=== PATIENT | male | born 1990 | race Caucasian/White ===

== ENCOUNTER 2020-06-28 17:46 | Emergency (ER) | payer SELFPAY ==
[2020-06-28 17:53] VITALS: BP 165/80; PULSE 98; RESP 18; TEMP 36.7; O2SAT 96; BMI 34.8
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
[2020-06-28 19:44] VITALS: BP 172/108; PULSE 83; O2SAT 96
[2020-06-28] MEDS: HYDROcodone-acetaminophen 7.5-325 mg Tablet 1 TAB PO (19:51)
--- NOTE | 2020-06-30 09:16 | DCPLANNER ---
sterile processing manager had message to schedule a follow up appointment for patient with ortho. sterile processing manager called the ortho clinic, spoke with Marti, gave clinic patients information. sterile processing manager was told that patients information would be printed and reviewed. Clinic will call patient with appointment information.
--- NOTE | 2020-07-08 11:50 | DCPLANNER ---
germination testing manager called ortho clinic to confirm if a follow up appointment had been scheduled for patient. germination testing manager was told that clinic tried to call patient for follow up appointment, unable to reach patient and unable to leave voicemail due to mailbox being full. germination testing manager called phone number - unable to speak with patient, and could not leave a voicemail due to mailbox being full.
== END 2020-06-28 19:52 | disposition home or self-care (01) ==
PROVIDERS: Emergency Provider Nurse Practitioner Family; PCP Nurse Practitioner Family
DX: M48.02 Spinal stenosis, cervical region (principal); M54.12 Radiculopathy, cervical region
CPT/HCPCS: 12345; 72125; 99281; 99283

== ENCOUNTER → 2021-07-11 14:11 | Outpatient (BNVA) | payer OTHER, SELFPAY | PROVIDERS: PCP Nurse Practitioner Family; Visit Provider Nurse Practitioner | DX: Z20.822 Contact with and (suspected) exposure to COVID-19 (principal) | CPT/HCPCS: 87635 ==

== ENCOUNTER 2021-08-05 19:02 | Emergency (ER) | payer OTHER, SELFPAY ==
[2021-08-05 19:07] VITALS: BP 171/78; PULSE 108; RESP 20; TEMP 36.8; O2SAT 97; BMI 29.2
--- NOTE | 2021-08-05 19:07 | XRR_ITS ---
PROCEDURE INFORMATION: Exam: XR Right Hand Exam date and time: 08/05/2021 7:07 PM Age: 30 years old Clinical indication: Injury or trauma; Other: Punched a wall; Blunt trauma (contusions or hematomas); Hand; Right TECHNIQUE: Imaging protocol: XR Right hand. Views: 3 or more views. COMPARISON: No relevant prior studies available. FINDINGS: Bones/joints: 5th metacarpal proximal metadiaphyseal mildly displaced and angled fracture. Soft tissues: Normal. XR/XR hand RT min 3V* [id number] IMPRESSION: 5th metacarpal proximal metadiaphyseal mildly displaced and angled fracture.
--- NOTE | 2021-08-05 19:15 | ED_ITS ---
HPI - Extremity Problem General: Chief complaint: Extremity Injury, Upper Stated complaint: R hand injury Time Seen by Provider: 08/05/21 19:15 Course Vital Signs: Vital signs: Vital Signs Temperature 98.2 F 08/05/21 19:07 Pulse Rate 108 H 08/05/21 19:07 Respiratory Rate 20 H 08/05/21 19:07 Blood Pressure 171/78 08/05/21 19:07 Pulse Oximetry 97 08/05/21 19:07 Discharge Plan Discharge Condition: Stable Prescriptions: No Action cyclobenzaprine 10 mg tablet 10 mg PO TID PRN (Reason: MUSCLE SPASMS) 0RF cetirizine 10 mg tablet 10 mg PO DAILY@1900 0RF ibuprofen 800 mg tablet 800 mg PO Q6H PRN (Reason: Pain) 0RF fluticasone propionate 50 mcg/actuation spray,suspension 50 mcg INTRANASAL DAILY@1900 0RF diclofenac sodium 75 mg tablet,delayed release (DR/EC) 75 mg PO Q12H Qty: 20 0RF Rx Instructions: do not use with ibuprofen or naproxen tizanidine 4 mg tablet 4 mg PO Q8H PRN (Reason: muscle spasticity) Qty: 14 0RF Coding Level of Care Code ED Steam Table Worker for Linda Amador
[2021-08-05] MEDS: HYDROcodone-acetaminophen 5-325 mg Tablet 1 TAB PO (19:20)
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
--- NOTE | 2021-08-05 19:57 | XRR_ITS ---
PROCEDURE INFORMATION: Exam: XR Right Hand Exam date and time: 08/05/2021 7:57 PM Age: 30 years old Clinical indication: Pain; Hand; Right; Additional info: Post reduction TECHNIQUE: Imaging protocol: XR Right hand. Views: 1 or 2 views. COMPARISON: CR (UP EX, ) 08/05/2021 7:25 PM FINDINGS: Bones/joints: Fifth proximal metadiaphyseal mildly displaced and angulated fracture, somewhat similar to prior exam. Soft tissues: Normal. XR/XR hand RT 2V [id number] IMPRESSION: Fifth proximal metadiaphyseal mildly displaced and angulated fracture, somewhat similar to prior exam.
--- NOTE | 2021-08-06 18:51 | DCPLANNER ---
Addendum entered by Emani Frazier 08/14/21 12:41: Patient had a follow up appointment scheduled for 08.10.[address] Rg at ortho - patient did attend appointment. Original Note: sql manager had message to schedule a follow up appointment for patient. sql manager emailed patients information to both Yadi, and Ailyn at the ortho clinic. Patients information will be printed and reviewed. Clinic will call patient with appointment information.
== END 2021-08-05 20:05 | disposition home or self-care (01) ==
PROVIDERS: Emergency Provider Nurse Practitioner Family
DX: S62.326A Displaced fracture of shaft of fifth metacarpal bone, right hand, initial encounter for closed fracture (principal); W22.09XA Striking against other stationary object, initial encounter
CPT/HCPCS: 26605; 29260; 73120; 73130; 99283

== ENCOUNTER → 2021-08-10 15:13 | Outpatient (BNVA) | payer OTHER, SELFPAY | PROVIDERS: Visit Provider Orthopaedic Surgery | DX: S62.326A Displaced fracture of shaft of fifth metacarpal bone, right hand, initial encounter for closed fracture (principal); W22.09XA Striking against other stationary object, initial encounter | CPT/HCPCS: 73130 ==

== ENCOUNTER 2021-08-10 16:14 | Outpatient (CLI) | payer OTHER, SELFPAY | END 2021-08-10 16:15 | disposition home or self-care (01) | LOC: SPT 16:14 | PROVIDERS: Visit Provider Orthopaedic Surgery | DX: Z46.89 Encounter for fitting and adjustment of other specified devices (principal); S62.396D Other fracture of fifth metacarpal bone, right hand, subsequent encounter for fracture with routine healing; X58.XXXD Exposure to other specified factors, subsequent encounter | CPT/HCPCS: 97760; L3984 ==

== ENCOUNTER → 2021-09-02 13:45 | Outpatient (BNVA) | payer OTHER, SELFPAY | PROVIDERS: Visit Provider Orthopaedic Surgery | DX: Z47.89 Encounter for other orthopedic aftercare; S62.326D Displaced fracture of shaft of fifth metacarpal bone, right hand, subsequent encounter for fracture with routine healing; X58.XXXD Exposure to other specified factors, subsequent encounter | CPT/HCPCS: 73130 ==

== ENCOUNTER → 2021-09-30 13:43 | Outpatient (BNVA) | payer OTHER, SELFPAY | PROVIDERS: Visit Provider Orthopaedic Surgery | DX: S62.326A Displaced fracture of shaft of fifth metacarpal bone, right hand, initial encounter for closed fracture (principal); X58.XXXA Exposure to other specified factors, initial encounter | CPT/HCPCS: 73130 ==

== ENCOUNTER → 2021-11-10 10:08 | Outpatient (BNVA) | payer OTHER, SELFPAY | PROVIDERS: Visit Provider Orthopaedic Surgery | DX: S62.326A Displaced fracture of shaft of fifth metacarpal bone, right hand, initial encounter for closed fracture (principal); X58.XXXA Exposure to other specified factors, initial encounter | CPT/HCPCS: 73130 ==

== ENCOUNTER → 2021-12-16 15:17 | Outpatient (BNVA) | payer OTHER, SELFPAY | PROVIDERS: Visit Provider Orthopaedic Surgery | DX: S62.306D Unspecified fracture of fifth metacarpal bone, right hand, subsequent encounter for fracture with routine healing (principal); X58.XXXD Exposure to other specified factors, subsequent encounter | CPT/HCPCS: 73130 ==

== ENCOUNTER 2021-12-22 20:10 | Emergency (ER) | payer OTHER, SELFPAY ==
[2021-12-22 20:18] VITALS: BP 145/83; PULSE 118; RESP 18; TEMP 38; O2SAT 95
--- NOTE | 2021-12-22 20:20 | XRR_ITS ---
PROCEDURE INFORMATION: Exam: XR Chest Exam date and time: 12/22/2021 8:25 PM Age: 31 years old Clinical indication: Fever TECHNIQUE: Imaging protocol: Radiologic exam of the chest. Views: 1 view. COMPARISON: CR Chest 1 [place] [id number] 01/12/2016 9:18 PM FINDINGS: Lungs: Unremarkable. No consolidation. Pleural spaces: Unremarkable. No pleural effusion. No pneumothorax. Heart/Mediastinum: Unremarkable. No cardiomegaly. Bones/joints: Unremarkable. XR/XR chest 1V portable [id number] IMPRESSION: No acute findings.
--- NOTE | 2021-12-22 20:34 | W.ED.GENADLT ---
HPI - General Adult General: Chief complaint: Fever Stated complaint: dizzy, fever, Time Seen by Provider: 12/22/21 20:18 History of Present Illness: Patient is a 31-year-old male who comes to the ED with fever, headache, body aches and fatigue. Symptoms started today. 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 He says he felt like he was not sweating much today while working and thinks he was not drinking enough water over the past couple days as well. He also started developing a fever tonight along with body aches. Denies any known sick contacts or any known contact with positive COVID-19 patient. Endorses nasal congestion/drainage and dry cough. He had a sore throat this morning, but it has since resolved. Denies any chest pain, nausea/vomiting, abdominal pain, bladder or bowel symptoms. Associated symptoms: Reports headache(s); Deny chest pain, dyspnea, nausea, rash, palpitations or vomiting Review of Systems Const: Reports: fever(s), body aches and fatigue; Denies: chills Eyes: Denies: change in vision or eye discomfort ENMT: Reports: throat pain, nasal discharge and nasal congestion; Denies: odynophagia Card: Denies: chest pain, palpitations, edema, swelling of feet/ankles, dyspnea on exertion or orthopnea Resp: Reports: non-productive cough; Denies: dyspnea or productive cough GI: Denies: abdominal pain, nausea, vomiting, diarrhea, constipation or hematochezia : Denies: flank pain, difficulty urinating, dysuria or hematuria Musc: Denies: neck pain, back pain or extremity swelling Skin/Breast: Denies: rash or new lesions Neuro: Reports: headache(s) and dizziness (Mild dizziness that has improved before coming to ED); Denies: numbness in extremities or weakness in extremities PFSH ED PFSH: Medical History No pertinent family history Surgical History No pertinent past surgical history Social History Smoking and tobacco status: never smoked Physical Exam Const: COMMON NORMALS: patient oriented x3 and alert GENERAL APPEARANCE: cooperative HENMT: COMMON NORMALS: normocephalic HEAD & SCALP: normocephalic MOUTH: Normal oral and palatal mucosa present THROAT: posterior oropharynx normal and uvula midline Eye: COMMON NORMALS: Equal, round and reactive pupils present and conjunctivae normal CONJUNCTIVA: Yes conjunctivae normal PUPIL: Yes Equal, round and reactive pupils present Neck/C-Spine: COMMON NORMALS: supple GENERAL: Yes normal visual inspection Resp: COMMON NORMALS: normal respiratory effort, No retractions, No use of accessory muscles and clear to auscultation bilaterally AUSCULTATION: clear to auscultation bilaterally Cardio: COMMON NORMALS: regular rate, regular rhythm, S1 normal heart sound present, S2 normal heart sound present, No gallops present (Cardio), No clicks present (Cardio), No murmurs present (Cardio) and Peripheral pulses 2+ throughout RATE: regular rate RHYTHM: regular rhythm HEART SOUNDS: S1 normal heart sound present and S2 normal heart sound present PERIPHERAL PULSES: Peripheral pulses 2+ throughout GI: COMMON NORMALS: Normal to inspection, nondistended, normoactive bowel sounds present, Soft to palpation, non-tender and no masses PALPATION: Yes Soft to palpation : COMMON NORMALS: Yes no CVA tenderness BLADDER/KIDNEY EXAM: Yes no CVA tenderness Back/Pelvis: COMMON NORMALS: no CVA tenderness Extremity: COMMON NORMALS: normal to inspection Neuro: COMMON NORMALS: patient oriented x3 and moves all extremities SENSORIUM/ORIENTATION: Yes alert Skin: GENERAL SKIN EXAM: dry skin Course Vital Signs: Vital signs: Vital Signs Temperature 100.4 F H 12/22/21 20:18 Pulse Rate 106 H 12/22/21 22:12 Respiratory Rate 18 12/22/21 22:07 Blood Pressure 145/83 12/22/21 20:18 Pulse Oximetry 93 12/22/21 22:07 [facility] - General Adult Medical Decision Making Patient is a 31-year-old male who comes to the ED with fever, headache, body aches and fatigue. Symptoms started today. 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 Patient had a temperature of 100.4 and a pulse of 118, but the rest of vitals were unremarkable. Exam of patient was benign. Labs were unremarkable. Influenza negative, COVID test pending. Chest x-ray showed some scattered punctuate calcified granulomas throughout both lungs. Patient was given 1 L of IV fluids and ibuprofen here in the ED and he said his symptoms improved. Given patient's clinical presentation and history leading up to symptoms heat exhaustion more likely than viral syndrome or COVID-19. He was diagnosed with heat exhaustion and calcified granuloma of the lung. I told him about the chest x-ray findings and I have put in an order with case management to refer patient to ferryboat helper Dr. Escamilla for further follow-up on lung granulomas. Return to ED precautions given. Follow-up with PCP in the next week for reevaluation. Patient understood and agreed with plan. Lab Data I reviewed the patient's lab results. : 12/22/21 20:45 12/22/21 20:45 Radiology Impressions Chest X-Ray 12/22/21 20:20 IMPRESSION: No acute findings. ADDENDUM: 12/22/212058 Scattered punctate calcified granulomas are seen throughout both lung morfin. Laboratory Results WBC 6.7 10^3/uL (4.0-10.0) 12/22/21 20:45 RBC 5.13 10^6/uL (4.1-5.3) 12/22/21 20:45 Hgb 14.7 g/dL (11.7-16.6) 12/22/21 20:45 Hct 42.9 % (42.0-52.0) 12/22/21 20:45 MCV 83.6 fl (80-94) 12/22/21 20:45 MCH 28.7 pg (28.0-34.0) 12/22/21 20:45 MCHC 34.3 g/dL (30.0-36.0) 12/22/21 20:45 RDW 12.2 % (12.1-15.1) 12/22/21 20:45 Plt Count 177 10^3/cmm (130-400) 12/22/21 20:45 MPV 10.9 fL (7.4-10.4) H 12/22/21 20:45 Neut % (Auto) 80.5 % 12/22/21 20:45 Lymph % (Auto) 7.2 % 12/22/21 20:45 Arthur % (Auto) 10.7 % 12/22/21 20:45 Eos % (Auto) 0.9 % 12/22/21 20:45 Baso % (Auto) 0.2 % 12/22/21 20:45 Neut # (Auto) 5.37 10^3/uL (1.8-7.7) 12/22/21 20:45 Lymph # (Auto) 0.5 10^3/uL (0.8-4.8) L 12/22/21 20:45 Arthur # (Auto) 0.7 10^3/uL (0.2-0.9) 12/22/21 20:45 Eos # (Auto) 0.1 10^3/uL (0.0-0.8) 12/22/21 20:45 Baso # (Auto) 0.0 10^3/uL (0.0-0.1) 12/22/21 20:45 Nucleated RBC % (auto) 0 % 12/22/21 20:45 Nucleated RBCs # 0.0 /100WBC 12/22/21 20:45 Sodium 141 mmol/L (136-145) 12/22/21 20:45 Potassium 3.8 mmol/L (3.5-5.1) 12/22/21 20:45 Chloride 104 mmol/L (98-107) 12/22/21 20:45 Carbon Dioxide 26 mmol/L (22-29) 12/22/21 20:45 Anion Gap 14.8 (5-19) 12/22/21 20:45 BUN 12 mg/dL (6-20) 12/22/21 20:45 Creatinine 0.9 mg/dL (0.7-1.2) 12/22/21 20:45 GFR Calculation 99.1 mL/min (90-130) 12/22/21 20:45 Glucose 94 mg/dL (65-115) 12/22/21 20:45 Calculated Osmolality 292 mOsm/kg (285-295) 12/22/21 20:45 Calcium 10.0 mg/dL (8.5-10.5) 12/22/21 20:45 Total Bilirubin 0.3 mg/dL (0.15-1.2) 12/22/21 20:45 AST 27 U/L (0-40) 12/22/21 20:45 ALT 43 U/L (0-41) H 12/22/21 20:45 Alkaline Phosphatase 42 IU/L (40-130) 12/22/21 20:45 Total Protein 7.7 g/dL (6.6-8.7) 12/22/21 20:45 Albumin 4.9 g/dL (3.5-5.2) 12/22/21 20:45 Globulin 2.8 g/dL (1.3-4.6) 12/22/21 20:45 Influenza Type A Ag Negative (Negative) 12/22/21 20:45 Influenza Type B Ag Negative (Negative) 12/22/21 20:45 Group A Strep Rapid Negative (Negative) 12/22/21 20:45 Discharge Plan Discharge Patient Disposition: Home Clinical Impression: COVID-19 virus test result unknown, Calcified granuloma of lung Heat exhaustion Qualifiers: Encounter type: initial encounter Qualified Code(s): T67.5XXA - Heat exhaustion, unspecified, initial encounter Condition: Stable Prescriptions: No Action (DME) Camilla sherman See Rx Instructions .Route .MEDSUPPLY Qty: 1 0RF Rx Instructions: As directed hydrocodone-acetaminophen 5-325 mg tablet 1 tab PO Q8H PRN (Reason: pain) 7 Days Qty: 30 0RF cyclobenzaprine 10 mg tablet 10 mg PO TID PRN (Reason: MUSCLE SPASMS) 0RF cetirizine 10 mg tablet 10 mg PO DAILY@1900 0RF ibuprofen 800 mg tablet 800 mg PO Q6H PRN (Reason: Pain) 0RF fluticasone propionate 50 mcg/actuation spray,suspension 50 mcg INTRANASAL DAILY@1900 0RF diclofenac sodium 75 mg tablet,delayed release (DR/EC) 75 mg PO Q12H Qty: 20 0RF Rx Instructions: do not use with ibuprofen or naproxen tizanidine 4 mg tablet 4 mg PO Q8H PRN (Reason: muscle spasticity) Qty: 14 0RF Discharge Orders: Discharge ED (Routine); Ordered 12/22/21 Ordered By: Evan Caicedo Discharge Diet: Regular Discharge Activity: Increase activity as tolerated Patient Instructions: Heat Exhaustion (ED) Activity Restrictions/Additional Instructions: Follow-up with PCP in the next 5 to 7 days for reevaluation. Case management should be contacting you next several days to set up an appointment with the ferryboat helper for further evaluation of granulomas in lungs.continue taking all home medications as previously prescribed. Your COVID-19 test is pending and should be back within the next 48 hours. [facility] should call you if results is positive but if you have not heard from them after 48 hours call [facility] to find out results. Return to the ER or your medical provider if condition worsens. Please read and understand discharge instructions. [facility] you [facility]. Please realize this is an emergency room and that we are providing you with a medical screening exam and this may not be complete and all inclusive of all the testing and or work up that you may need to determine your ailment or severity of your illness. It is very important that you follow up as instructed or that you return to the Emergency Department should you have concerns or if your condition changes or worsens in any way. Stand Alone Forms: Work/School Release Coding Level of Care Code ED Puttying And Calking Supervisor for Linda Fwroly Exam Comprehensive
[2021-12-22] MEDS: ibuprofen 800 mg tablet PO (20:49)
[2021-12-22] MEDS: sodium chloride 0.9% 1,000 ML 999 ML IV (20:49)
[2021-12-22 20:54] LABS: Basophils % 0.2 %; Eosinophils # 0.1 10^3/uL (0.0-0.8); Eosinophils % 0.9 %; Hematocrit 42.9 % (42.0-52.0); Hemoglobin 14.7 g/dL (11.7-16.6); Lymphocytes # 0.5 10^3/uL (0.8-4.8); Lymphocytes % 7.2 %; Mean Corpuscular HGB Conc 34.3 g/dL (30.0-36.0); Mean Corpuscular Hemoglobin 28.7 pg (28.0-34.0); Mean Corpuscular Volume 83.6 fl (80-94); Mean Platelet Volume 10.9 fL (7.4-10.4); Monocytes # 0.7 10^3/uL (0.2-0.9); Monocytes % 10.7 %; Neutrophils # 5.37 10^3/uL (1.8-7.7); Neutrophils % 80.5 %; Nucleated Red Blood Cells % 0 %; Platelet Count 177 10^3/cmm (130-400); Red Blood Count 5.13 10^6/uL (4.1-5.3); Red Cell Distribution Width 12.2 % (12.1-15.1); White Blood Count 6.7 10^3/uL (4.0-10.0)
[2021-12-22 21:16] LABS: Rapid Strep A Test Negative (Negative)
[2021-12-22 21:20] LABS: Influenza A by IFA Negative (Negative); Influenza B by IFA Negative (Negative)
[2021-12-22 21:22] LABS: Alanine Aminotransferase 43 U/L (0-41); Albumin Level 4.9 g/dL (3.5-5.2); Alkaline Phosphatase 42 IU/L (40-130); Anion Gap 14.8 (5-19); Aspartate Amino Transferase 27 U/L (0-40); Blood Urea Nitrogen 12 mg/dL (6-20); Carbon Dioxide 26 mmol/L (22-29); Chloride 104 mmol/L (98-107); Creatinine Clr Calc Pharmacy 147.5331; Globulin 2.8 g/dL (1.3-4.6); Glomerular Filtration Rate 99.1 mL/min (90-130); Glucose 94 mg/dL (65-115); Osmolality Calculated 292 mOsm/kg (285-295); Potassium 3.8 mmol/L (3.5-5.1); Sodium 141 mmol/L (136-145); Total Bilirubin 0.3 mg/dL (0.15-1.2); Total Protein 7.7 g/dL (6.6-8.7)
[2021-12-22 22:07] VITALS: PULSE 105; RESP 18; O2SAT 93
[2021-12-22] MEDS: ipratropium-albuterol 3 mL Neb 6 ML INHALATION (22:07)
[2021-12-22 22:12] VITALS: PULSE 106
[2021-12-24 17:52] LABS: Quest SARS-CoV-2 RNA DETECTED (NOT DETECTED)
--- NOTE | 2021-12-25 08:10 | DCPLANNER ---
Addendum entered by Emani Frazier 01/05/22 09:59: Patient had a follow up appointment scheduled for 12.31.[address] Escamilla at Pulmonology - patient did attend appointment. Original Note: manager employee benefits had message to schedule a follow up appointment for patient with pulmonolgy. manager employee benefits sent patients information to the front office staff at [facility]. Patients information will be printed and reviewed. Clinic will call patient with appointment information.
== END 2021-12-22 22:30 | disposition home or self-care (01) ==
PROVIDERS: Emergency Provider Physician Assistant
DX: J84.10 Pulmonary fibrosis, unspecified (principal); T67.5XXA Heat exhaustion, unspecified, initial encounter; Z20.822 Contact with and (suspected) exposure to COVID-19; X30.XXXA Exposure to excessive natural heat, initial encounter
CPT/HCPCS: 71045; 80053; 85025; 87081; 87635; 87804; 87880; 94640; 99284; J7030

== ENCOUNTER 2022-01-26 19:55 | Emergency (ER) | payer OTHER, SELFPAY ==
[2022-01-26 20:01] VITALS: BP 144/88; PULSE 86; RESP 18; TEMP 36.6; O2SAT 97; BMI 32.8
--- NOTE | 2022-01-26 20:02 | XRR_ITS ---
PROCEDURE INFORMATION: Exam: XR Right Wrist Exam date and time: 01/26/2022 8:12 PM Age: 31 years old Clinical indication: Injury or trauma; Other: Back slapped a door; Blunt trauma (contusions or hematomas); Wrist; Right TECHNIQUE: Imaging protocol: Radiologic exam of the Right wrist. Views: 3 or more views. COMPARISON: CR (UP EXM, ) 01/26/2022 8:10 PM FINDINGS: Bones/joints: Osseous structures are intact. Negative for fracture. Joint spaces are preserved. Soft tissues: Normal. XR/XR wrist RT min 3V* [id number] IMPRESSION: No acute findings.
--- NOTE | 2022-01-26 20:02 | XRR_ITS ---
PROCEDURE INFORMATION: Exam: XR Right Hand Exam date and time: 01/26/2022 8:10 PM Age: 31 years old Clinical indication: Injury or trauma; Other: Back slapped a door; Blunt trauma (contusions or hematomas); Hand; Right TECHNIQUE: Imaging protocol: Radiologic exam of the Right hand. Views: 3 or more views. COMPARISON: CR (UP EX, ) 08/10/2021 3:21 PM FINDINGS: Bones/joints: Osseous structures are intact. No acute fracture. Old callused fracture noted at the base of the 5th metacarpal. Soft tissues: Normal. XR/XR hand RT min 3V* [id number] IMPRESSION: No acute findings.
--- NOTE | 2022-01-26 20:15 | W.ED.EXTPRO ---
HPI - Extremity Problem General: Chief complaint: Extremity Injury, Upper Stated complaint: R hand an wrist injusry Time Seen by Provider: 01/26/22 20:08 [facility] ED PFSH: Medical History (Updated 12/31/21 @ 15:53 by Suze Escamilla MD) Allergic rhinosinusitis Fracture of fifth metacarpal bone of right hand No pertinent family history Surgical History No pertinent past surgical history Social History Smoking and tobacco status: never smoked Course Vital Signs: Vital signs: Vital Signs Temperature 97.9 F 01/26/22 20:01 Pulse Rate 86 01/26/22 20:01 Respiratory Rate 18 01/26/22 20:01 Blood Pressure 144/88 01/26/22 20:01 Pulse Oximetry 97 01/26/22 20:01 Oxygen Delivery Me thod 01/26/22 20:01 Discharge Plan Discharge Condition: Stable Prescriptions: No Action (DME) Camilla sherman See Rx Instructions .Route .MEDSUPPLY Qty: 1 0RF Rx Instructions: As directed multivitamin Tablet 1 tab PO DAILY cyclobenzaprine 10 mg tablet 10 mg PO TID PRN (Reason: MUSCLE SPASMS) cetirizine 10 mg tablet 10 mg PO DAILY@1900 ibuprofen 800 mg tablet 800 mg PO Q6H PRN (Reason: Pain) fluticasone propionate 50 mcg/actuation spray,suspension 50 mcg INTRANASAL DAILY@1900 Referrals: Andry Burgos MD [Primary Care Provider] - Coding Level of Care Code ED 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
--- NOTE | 2022-01-26 20:17 | W.ED.UPPEXIN ---
HPI - Extremity Injury (Upper) General: Chief Complaint: Extremity Injury, Upper Stated Complaint: R hand an wrist injusry Time Seen by Provider: 01/26/22 20:08 Source: patient Mode of arrival: ambulatory Limitations: no limitations History of Present Illness: Patient is a 31-year-old male who presents to ED today with a complaint of right hand pain. Patient tells me earlier today he struck his right hand up against a wall. Patient states he more or less smacked the wall with the back of his hand and denies any actual punching mechanism. Patient does report he broke his right fifth metacarpal a few months ago and was recently cleared by orthopedics last month. He denies any numbness, tingling, loss of sensation. No abrasions or lacerations. He has no other complaints at this time. complaint: injury to: right and hand Onset (ago): hour(s) Other Extremity Injury: Right: hand Other injuries: none Place: home Severity: moderate Relieving factors: immobilization Exacerbating factors: movement of extremity Context: direct blow Associated symptoms: Reports no associated symptoms Review of Systems Musc: Reports: extremity pain (R hand); Denies: joint pain, joint swelling, joint redness or limited range of motion Neuro: Denies: numbness in extremities or sensory changes PFS ED PFSH: Medical History Allergic rhinosinusitis Fracture of fifth metacarpal bone of right hand No pertinent family history Surgical History No pertinent past surgical history Social History Smoking and tobacco status: never smoked Physical Exam Const: COMMON NORMALS: no acute distress, average body habitus, no limitations, alert and well nourished Extremity: COMMON NORMALS: full ROM and capillary refill normal GENERAL: Yes normal exam except as noted RIGHT UPPER EXTREMITY: Yes hand & digits OTHER: TTP dorsal R hand; mild bony deformity noted to midshaft R 5th metacarpal from previous known fracture; no other bony deformities noted; full ROM; NV intact Neuro: COMMON NORMALS: moves all extremities, no focal motor deficits and no sensory deficits noted SENSORIUM/ORIENTATION: Yes alert Skin: TRAUMA: no lacerations or abrasions Course Vital Signs: Vital signs: Vital Signs Temperature 97.9 F 01/26/22 20:01 Pulse Rate 86 01/26/22 20:01 Respiratory Rate 18 01/26/22 20:01 Blood Pressure 144/88 01/26/22 20:01 Pulse Oximetry 97 01/26/22 20:01 Oxygen Delivery Me thod 01/26/22 20:01 MDM - Extremity Injury (Upper) Medical Decision Making XRs hand/wrist negative. Healing fracture of mid shaft 5th metacarpal noted. No changes from today's films vs last films he had done at orthopedics last month. Recommend conservative treatment at home. Return to ED precautions. If he continues to have pain I would recommend he see his orthopedic provider. Discharge Plan Discharge Patient Disposition: Home Clinical Impression: Contusion of right hand Qualifiers: Encounter type: initial encounter Qualified Code(s): S60.221A - Contusion of right hand, initial encounter Condition: Stable Prescriptions: No Action (DME) Ulnar gutter See Rx Instructions .Route .MEDSUPPLY Qty: 1 0RF Rx Instructions: As directed multivitamin Tablet 1 tab PO DAILY cyclobenzaprine 10 mg tablet 10 mg PO TID PRN (Reason: MUSCLE SPASMS) cetirizine 10 mg tablet 10 mg PO DAILY@1900 ibuprofen 800 mg tablet 800 mg PO Q6H PRN (Reason: Pain) fluticasone propionate 50 mcg/actuation spray,suspension 50 mcg INTRANASAL DAILY@1900 Discharge Orders: Discharge ED (Routine); Ordered 01/26/22 Ordered By: Janice Sandoval Referrals: Andry Burgos MD [Primary Care Provider] - Coding Level of Care Code ED Radiotelephone Operator for Linda Amador
== END 2022-01-26 20:37 | disposition home or self-care (01) ==
PROVIDERS: Emergency Provider Physician Assistant; PCP Family Medicine
DX: S60.221A Contusion of right hand, initial encounter (principal); W22.09XA Striking against other stationary object, initial encounter
CPT/HCPCS: 73110; 73130; 99283

== ENCOUNTER 2022-03-11 20:20 | Emergency (ER) | payer OTHER, SELFPAY ==
[2022-03-11 20:32] VITALS: BP 145/87; PULSE 90; RESP 16; TEMP 36.9; O2SAT 100
--- NOTE | 2022-03-11 20:50 | PC.NURSE ---
Patient states his last td was here two years ago
[2022-03-11] MEDS: lidocaine 2% viscous 15 mL UDC TOPICAL (21:42)
--- NOTE | 2022-03-11 22:13 | W.ED.WOUNDLC ---
HPI - Wound/Laceration General: Chief Complaint: Wound/Laceration Stated Complaint: Busted Lip Time Seen by Provider: 03/11/22 20:34 History of Present Illness: Patient is in today for a busted lip. He reports that he was working in his garage and he pulled back and a bar came back and hit him in the lower lip. He reports that he has an open sore now. He reports that he is up-to-date on his tetanus vaccination within the past 1 year. Associated symptoms: Denies chills or fever(s) Review of Systems Const: Denies: fever(s) or chills ENMT: Reports: other (Open sore lower lip) ON LICENSE OF [facility] ED PFSH: Medical History Allergic rhinosinusitis Fracture of fifth metacarpal bone of right hand No pertinent family history Surgical History No pertinent past surgical history Social History Smoking and tobacco status: never smoked Physical Exam Const: COMMON NORMALS: no acute distress, patient oriented x3 and alert HENMT: MOUTH IMAGES: 1. Superficial laceration to the lower lip mucosa. Wound is slightly gaping jagged edge. Resp: COMMON NORMALS: normal respiratory effort and No use of accessory muscles Neuro: COMMON NORMALS: patient oriented x3 SENSORIUM/ORIENTATION: Yes alert Procedures Laceration Laceration 1: Site: lip (Lower lip mucosa) Size (cm): 0.5 Description: irregular Depth: simple, single layer Local Anesthetic: other anesthetic (Viscous lidocaine) Pre-repair: irrigated extensively Skin layer closed with: vicryl (5-o) Size (cm): 5-0 Number of sutures: 1 Technique: simple, interrupted Course Vital Signs: Vital signs: Vital Signs Temperature 98.4 F 03/11/22 20:32 Pulse Rate 90 03/11/22 20:32 Respiratory Rate 16 03/11/22 20:32 Blood Pressure 145/87 03/11/22 20:32 Pulse Oximetry 100 03/11/22 20:32 Oxygen Delivery Me thod 03/11/22 20:32 MDM - Wound/Laceration Medical Decision Making Patient is in today for a busted lip. He does have a slightly gaping small wound on his lower lip mucosa. Bleeding is mostly controlled. Viscous lidocaine applied wound is cleansed and explored no obvious foreign bodies appreciated. Patient states because the wound edges are a little bit and even he is afraid that that well really bother him as it is healing. He request suture repair. 5-0 Vicryl used times 1 suture to approximate the wound. Patient tolerated well bleeding is controlled. Advised patient of aftercare advised him that if the suture has not dissolved in 3 to 5 days I would like him to return to have the suture removed at that time. Follow-up with primary care provider. Return to the ER as needed for new or worsening symptoms. Discharge Plan Discharge Patient Disposition: Home Clinical Impression: Laceration of lip Condition: Stable Prescriptions: No Action (DME) Camilla sherman See Rx Instructions .Route .MEDSUPPLY Qty: 1 0RF Rx Instructions: As directed multivitamin Tablet 1 tab PO DAILY cyclobenzaprine 10 mg tablet 10 mg PO TID PRN (Reason: MUSCLE SPASMS) cetirizine 10 mg tablet 10 mg PO DAILY@1900 ibuprofen 800 mg tablet 800 mg PO Q6H PRN (Reason: Pain) fluticasone propionate 50 mcg/actuation spray,suspension 50 mcg INTRANASAL DAILY@1900 Discharge Orders: Discharge ED (Routine); Ordered 03/11/22 Ordered By: Jasmin Grider Referrals: Andry Burgos MD [Primary Care Provider] - Discharge Diet: Advance as tolerated and Usual diet Discharge Activity: Resume usual activity Patient Instructions: Care For Your Absorbable Stitches (ED) Activity Restrictions/Additional Instructions: Your sutures should dissolve on their own but if they are still remaining in 3 to 5 days you may return here or go to your primary care provider's office to have the suture removed. You may ice the area a few minutes at a time a couple times a day in order to help with swelling. Monitor closely for signs of infection. Follow-up with primary care provider as needed. Return to the ER for any new or worsening symptoms Coding Level of Care Code ED Machine Leather Trimmer for Linda Amador
== END 2022-03-11 22:19 | disposition home or self-care (01) ==
PROVIDERS: Emergency Provider Nurse Practitioner Family; PCP Family Medicine
DX: S01.511A Laceration without foreign body of lip, initial encounter (principal); W20.8XXA Other cause of strike by thrown, projected or falling object, initial encounter
CPT/HCPCS: 12011; 99282

== ENCOUNTER 2022-05-23 22:09 | Emergency (ER) | payer OTHER, SELFPAY ==
[2022-05-23 22:27] VITALS: BP 119/81; PULSE 79; RESP 16; TEMP 36.6; O2SAT 98; BMI 30.7
--- NOTE | 2022-05-23 23:01 | CTR_ITS ---
PROCEDURE INFORMATION: Exam: CT Head Without Contrast Exam date and time: 05/23/2022 11:08 PM Age: 31 years old Clinical indication: Injury or trauma; Other: Large object struck back of head; Concussion/head injury; Additional info: Headache after being hit by a large tire. TECHNIQUE: Imaging protocol: Computed tomography of the head without contrast. Radiation optimization: All CT scans at this facility use at least one of these dose optimization techniques: automated exposure control; mA and/or kV adjustment per patient size (includes targeted exams where dose is matched to clinical indication); or iterative reconstruction. COMPARISON: CT cervical spin wo con* [id number] 06/28/2020 6:46 PM RADIATION DOSE METRICS: Total DLP (mGy-cm): 1135.33 FINDINGS: Brain: No focal hemorrhage or midline shift is identified. Cerebral ventricles: No ventriculomegaly or evidence of acute hydrocephalus. Paranasal sinuses: The partially assessed sinuses are grossly clear. Mastoid air cells: Visualized mastoid air cells are well aerated. Bones/joints: No displaced skull fracture is noted. Soft tissues: Unremarkable. CT/CT head wo con* [id number] IMPRESSION: No acute intracranial abnormality.
--- NOTE | 2022-05-23 23:01 | CTR_ITS ---
PROCEDURE INFORMATION: Exam: CT Cervical Spine Without Contrast Exam date and time: 05/23/2022 11:08 PM Age: 31 years old Clinical indication: Neck pain; Additional info: Neck pain-whiplash type injury TECHNIQUE: Imaging protocol: Computed tomography of the cervical spine without contrast. Radiation optimization: All CT scans at this facility use at least one of these dose optimization techniques: automated exposure control; mA and/or kV adjustment per patient size (includes targeted exams where dose is matched to clinical indication); or iterative reconstruction. COMPARISON: CT cervical spin wo con* [id number] 06/28/2020 6:46 PM RADIATION DOSE METRICS: Total DLP (mGy-cm): 214.2 FINDINGS: Bones/joints: No acute fracture. Normal alignment. No significant disc protrusion. No severe spinal canal stenosis. Mild mid cervical lordotic reversal, which may be due to position or spasm. Lungs: Lung apices are normal. Soft tissues: Unremarkable. CT/CT cervical spin wo con* [id number] IMPRESSION: No acute findings.
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
[2022-05-23] MEDS: ibuprofen 800 mg tablet PO (23:07)
[2022-05-23 23:56] VITALS: BP 145/77; PULSE 72; RESP 18; O2SAT 97
== END 2022-05-23 23:55 | disposition home or self-care (01) ==
PROVIDERS: Emergency Provider Physician Assistant; PCP Family Medicine
DX: S13.4XXA Sprain of ligaments of cervical spine, initial encounter (principal); W20.8XXA Other cause of strike by thrown, projected or falling object, initial encounter
CPT/HCPCS: 70450; 72125; 99284

== ENCOUNTER 2022-05-28 18:02 | Emergency (ER) | payer OTHER, SELFPAY ==
[2022-05-28 18:15] VITALS: BP 140/86; PULSE 86; RESP 12; TEMP 36.9; O2SAT 97; BMI 30.7
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
[2022-05-28] MEDS: meclizine 25 mg tablet 50 MG PO (20:00)
[2022-05-28 20:18] VITALS: PULSE 85; RESP 17; O2SAT 95
--- NOTE | 2022-05-31 08:18 | DCPLANNER ---
Addendum entered by Emani Frazier 06/01/22 14:19: Patient had a follow up appointment scheduled with ENT - patient did attend appointment. Original Note: information technology account manager had message to schedule a follow up appointment for patient with ENT. information technology account manager sent patients information to the front office staff at ENT. Patients information will be printed and reviewed. Clinic will call patient with appointment information.
== END 2022-05-28 20:09 | disposition home or self-care (01) ==
PROVIDERS: Emergency Provider Emergency Medicine; PCP Family Medicine
DX: T16.2XXA Foreign body in left ear, initial encounter (principal); X58.XXXA Exposure to other specified factors, initial encounter
CPT/HCPCS: 69200; 99283; J8597

== ENCOUNTER 2022-10-23 15:36 | Emergency (ER) | payer OTHER, SELFPAY ==
[2022-10-23 15:40] VITALS: BP 137/80; PULSE 98; RESP 16; TEMP 36.6; O2SAT 96
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
== END 2022-10-23 16:52 | disposition home or self-care (01) ==
PROVIDERS: Emergency Provider Physician Assistant; PCP Family Medicine
DX: S39.012A Strain of muscle, fascia and tendon of lower back, initial encounter (principal); V89.2XXA Person injured in unspecified motor-vehicle accident, traffic, initial encounter
CPT/HCPCS: 72040; 72100; 99283

== ENCOUNTER 2022-12-17 13:08 | Emergency (ER) | payer OTHER, SELFPAY ==
[2022-12-17 13:29] VITALS: BP 128/75; PULSE 87; RESP 17; TEMP 36.7; O2SAT 97; BMI 28.8
[2022-12-17 15:24] VITALS: BP 139/74; PULSE 86; O2SAT 96
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
[2022-12-17] MEDS: dexamethasone 10 mg/mL INJ IM (15:42)
[2022-12-17] MEDS: ketorolac 60 mg/2 mL INJ IM (15:42)
[2022-12-17] MEDS: methocarbamol 750 mg Tablet PO (15:42)
[2022-12-17 16:02] VITALS: BP 139/72; PULSE 87; O2SAT 94
== END 2022-12-17 16:03 | disposition home or self-care (01) ==
PROVIDERS: Emergency Provider Physician Assistant; PCP Family Medicine
DX: S39.012A Strain of muscle, fascia and tendon of lower back, initial encounter (principal); X50.0XXA Overexertion from strenuous movement or load, initial encounter
CPT/HCPCS: 96372; 99284; J1100; J1885

== ENCOUNTER 2023-07-28 14:49 | Outpatient (CLI) | payer OTHER, SELFPAY ==
--- NOTE | 2023-07-28 15:15 | USCV_ITS ---
Fred López Age: 32 Gender: M : 1990 Exam Date: 07/28/2023 15:18 Ordering Phys: Andry Burgos MD Technologist: Jessi Chávez Exam Location: [facility] [place] Indication: palpitations BP: 125 / 64 HR: Rhythm: Sinus Technical Quality: Good MEASUREMENTS (Male / Female) Normal Values 2D ECHO LVOT Diameter 2.1 cm LV Ejection Fraction MOD 2C 32.3 % Aorta at Sinotubular Diameter 2.9 cm IVC Diameter 1.1 cm M-MODE LA Ao Ratio MM 1.1 AV Cusp Separation MM 2.0 cm DOPPLER AV Peak Velocity 122.0 cm/s LVOT Peak Velocity 110.0 cm/s AV Area Cont Eq vti 3.7 cm squared AV Area Cont Eq pk 3.2 cm squared MV Area PHT 3.9 cm squared Mitral E to A Ratio 1.5 TV Peak Velocity 124.5 cm/s TR Peak Velocity 189.5 cm/s TR Peak Gradient 14.4 mmHg Right Atrial Pressure 3.0 mmHg Pulmonary Artery Systolic Pressu 17.4 mmHg PV Peak Velocity 96.0 cm/s FINDINGS Left Ventricle Ventricle is normal size. LV systolic function is normal with EF of 55-60%. No regional wall motion abnormalities are seen. Right Ventricle Normal in size and function Right Atrium Normal in size Left Atrium Normal in size Mitral Valve Structurally normal mitral valve. Mild mitral regurgitation Aortic Valve Structurally normal aortic valve. Tricuspid Valve Mild tricuspid regurgitation. Pulmonary artery systolic pressure is normal. Pulmonic Valve Trace pulmonic regurgitation Pericardium Normal Aorta Normal in size IVC Appears to be normal CONCLUSIONS LV systolic function is normal with EF of 55-60% Mild mitral regurgitation Mild tricuspid regurgitation Trace pulmonic regurgitation No comparison studies are available. Erik Stone MD (Electronically Signed) Final Date: 06 August 2023 11:48 S
== END 2023-07-28 14:50 | disposition home or self-care (01) ==
LOC: RAD 14:51
PROVIDERS: PCP Family Medicine; Visit Provider Family Medicine
DX: I08.1 Rheumatic disorders of both mitral and tricuspid valves (principal)
CPT/HCPCS: 93306

== ENCOUNTER → 2023-10-05 15:15 | Outpatient (BNVA) | payer OTHER, SELFPAY | PROVIDERS: PCP Family Medicine; Referring Provider Family Medicine; Visit Provider Internal Medicine Cardiovascular Disease | DX: R07.9 Chest pain, unspecified (principal); R00.2 Palpitations; R55 Syncope and collapse; I45.10 Unspecified right bundle-branch block | CPT/HCPCS: 93005 ==

== ENCOUNTER 2024-10-01 20:19 | Emergency (ER) | payer SELFPAY ==
[2024-10-01 20:22] VITALS: BP 147/80; PULSE 104; TEMP 36.7; O2SAT 97; BMI 33.0
--- NOTE | 2024-10-01 20:32 | ECG_ITS ---
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 Measurements Intervals [place] Rate: 93 P: 51 MI: 124 QRS: 72 QRSD: 109 T: 14 QT: 324 QTc: 403 Interpretive Statements SINUS RHYTHM INTERPRETATION BASED ON A DEFAULT AGE OF 40 YEARS Compared to ECG 10/05/2023 15:19:18 Short MI interval no longer present Incomplete right bundle-branch block no longer present ST (T wave) deviation no longer present Early repolarization no longer present Electronically Signed On 10-02-2024 21:22:37 CDT by Kallie Katz M.D. [id number] [id number]
--- NOTE | 2024-10-01 20:32 | CTR_ITS ---
PROCEDURE INFORMATION: Exam: CT Head Without Contrast Exam date and time: 10/01/2024 8:41 PM Age: 33 years old Clinical indication: Injury or trauma; Fall; Blunt trauma (contusions or hematomas); With loss of consciousness; Not specified; Additional info: Head injury TECHNIQUE: Imaging protocol: Computed tomography of the head without contrast. Radiation optimization: All CT scans at this facility use at least one of these dose optimization techniques: automated exposure control; mA and/or kV adjustment per patient size (includes targeted exams where dose is matched to clinical indication); or iterative reconstruction. COMPARISON: CT head wo con* [id number] 05/23/2022 11:08 PM RADIATION DOSE METRICS: Total DLP (mGy-cm): 1067.09 FINDINGS: Brain: Normal. No hemorrhage. Unremarkable white matter. No mass effect. Cerebral ventricles: No ventriculomegaly. Paranasal sinuses: Visualized sinuses are unremarkable. No fluid levels. Mastoid air cells: Visualized mastoid air cells are well aerated. Bones: Unremarkable. No acute fracture. Soft tissues: Unremarkable. CT/CT head wo con* [id number] IMPRESSION: No acute intracranial abnormality.
[2024-10-01 20:59] VITALS: BP 149/80; PULSE 95; O2SAT 97
--- NOTE | 2024-10-01 21:05 | XRR_ITS ---
PROCEDURE INFORMATION: Exam: XR Chest Exam date and time: 10/01/2024 9:08 PM Age: 33 years old Clinical indication: Other: Syncope TECHNIQUE: Imaging protocol: Radiologic exam of the chest. Views: 1 view. COMPARISON: CR XR chest 1V portable [id number] 12/22/2021 8:25 PM FINDINGS: Lungs: Unremarkable. No consolidation. Pleural spaces: Unremarkable. No pleural effusion. No pneumothorax. Heart/Mediastinum: Unremarkable. No cardiomegaly. Bones/joints: Unremarkable. XR/XR chest 1V portable [id number] IMPRESSION: No acute findings.
--- NOTE | 2024-10-01 21:06 | W.ED.SYNCOPE ---
HPI - Syncope General: Chief Complaint: Syncope Stated Complaint: Head Injury Time Seen by Provider: 10/01/24 20:47 Source: patient Mode of arrival: ambulatory Limitations: no limitations History of Present Illness: Patient is a 33-year-old male who presents the emergency department due to syncopal episode that occurred at approximately 1930. Patient states he has a history of this, has been diagnosed with a psychogenic syncopal disorder and was started on Paxil and hydroxyzine for this. Patient states he has not had an episode for 6 months and overall was doing well, until today at work he felt himself staring off into space. He then notes that reportedly 5 minutes went by and he was woken up by coworkers. He does report that he hit his head really hard and is having pain to the area, and is getting intermittently lightheaded and dizzy. He is not on any blood thinners. He has never seen neurology for this, denies any cardiac history. Prior to the incident he did not report any chest pain, shortness of breath, palpitations, or any other concerning symptoms. No focal neurological deficits at this time, vitals unremarkable. States that he has been drinking water all day, was not significantly exerting himself or felt overheated with a syncopal episode. Related Data Home Medications ?Medication ?Instructions ?Recorded ?Confirmed cetirizine 10 mg tablet 10 mg PO DAILY@189906/28/20 05/02/24 fluticasone propionate 50 50 mcg intranasal DAILY@189906/28/20 05/02/24 mcg/actuation nasal spray,suspension ibuprofen 800 mg tablet 800 mg PO Q6H PRN Pain 06/28/20 05/02/24 multivitamin 1 tab PO DAILY 12/31/21 05/02/24 omeprazole 40 mg capsule,delayed 40 mg PO DAILY 10/05/23 05/02/24 release paroxetine HCl 10 mg tablet 10 mg PO DAILY 10/05/23 05/02/24 Previous Rx's ?Medication ?Instructions ?Recorded Ulnar gutter #1 ea 08/10/21 cyclobenzaprine 10 mg tablet 10 mg PO BID PRN muscle spasm #20 05/23/22 tabs celecoxib 100 mg capsule 100 mg PO BID PRN back pain #30 12/17/22 caps amoxicillin 500 mg capsule 500 mg PO TID #30 caps 05/02/24 Allergies Allergy/AdvReac Type Severity Reaction Status Date / Time doxycycline Allergy ALGY-Rash Verified 10/01/24 20:29 egg Allergy Unknown Verified 10/01/24 20:29 PFSH ED PFSH: Medical History Allergic rhinosinusitis No pertinent family history Fracture of fifth metacarpal bone of right hand Surgical History No pertinent past surgical history Family History Mother Hypertension Father Hypertension Denies family history of CAD (coronary artery disease) Congestive heart failure (CHF) Anemia Aneurysm Arrhythmia Atrial fibrillation TIA (transient ischemic attack) Heart disease Hyperlipidemia Hyperthyroidism Hypothyroidism Sudden cardiac Chronic kidney disease (CKD) Congenital heart disease Carotid artery disease Pulmonary embolism Cardiomyopathy Stroke Social History Smoking and tobacco/nicotine status: unknown if used tobacco/nicotine Physical Exam Const: COMMON NORMALS: no acute distress, patient oriented x3 and no limitations GENERAL APPEARANCE: cooperative, comfortable and well developed ORIENTATION/CONSCIOUSNESS: Yes awake, Yes oriented to person, Yes oriented to place and Yes oriented to time HENMT: COMMON NORMALS: normocephalic, atraumatic and hearing grossly normal bilaterally HEAD & SCALP: normocephalic and atraumatic; no Gomez's sign, no palpable skull fracture, no raccoon eyes and no scalp tenderness Eye: COMMON NORMALS: Equal, round and reactive pupils present, EOMs intact bilaterally and conjunctivae normal CONJUNCTIVA: Yes conjunctivae normal PUPIL: Yes Equal, round and reactive pupils present OTHER: Eyes track midline, no nystagmus Neck/C-Spine: COMMON NORMALS: full ROM, supple and no JVD OTHER: No cervical spine tenderness Resp: COMMON NORMALS: normal respiratory effort, No retractions, No use of accessory muscles and clear to auscultation bilaterally AUSCULTATION: clear to auscultation bilaterally Cardio: COMMON NORMALS: no JVD, regular rate, regular rhythm, No clicks present (Cardio), No murmurs present (Cardio) and No rub (Cardio) RATE: regular rate RHYTHM: regular rhythm GI: COMMON NORMALS: Normal to inspection, nondistended, normoactive bowel sounds present, Soft to palpation and non-tender AUSCULTATION: Yes normoactive bowel sounds PALPATION: Yes Soft to palpation RECTAL EXAM: Yes deferred Extremity: COMMON NORMALS: normal to inspection, full ROM and capillary refill normal Neuro: COMMON NORMALS: patient oriented x3, CN's II-XII intact bilaterally, moves all extremities, no focal motor deficits and no sensory deficits noted SENSORIUM/ORIENTATION: Yes oriented to person, Yes oriented to place and Yes oriented to time Psych: COMMON NORMALS: mental status grossly normal and Normal thought process present THOUGHT PROCESS: Normal thought process present Skin: COMMON NORMALS: no rashes or lesions noted GENERAL SKIN EXAM: no rashes or lesions noted Course Vital Signs: Vital signs: Vital Signs Temperature 98.0 F 10/01/24 20:22 Pulse Rate 93 10/01/24 22:29 Blood Pressure 140/78 10/01/24 22:29 Pulse Oximetry 99 10/01/24 22:29 Oxygen Delivery Me thod Room Air 10/01/24 20:22 MDM - Syncope Medical Decision Making Patient presented after syncope and collapse episode at work, history of similar. Has currently taking Paxil and hydroxyzine for this as it was reported to be psychogenic. Today he hit his head, neurologically is intact on exam and no outward signs of injury. CT of his head was negative for any intracranial abnormality. His lab work was normal, chest x-ray normal, and EKG did not show any acute abnormalities. Blood pressure and rest of his vitals have been stable, ultimately do not know what caused a syncopal episode, he did not have any concerning or alarming symptoms prior to this incident that would make me think that this is cardiac in nature, so I will refer him to neurology for further workup. Was given IV fluids here has had no further complaints and will be discharged in stable condition at this time. Lab Data 10/01/24 21:10 10/01/24 21:[address] 10/01/24 20:32 IMPRESSION: No acute intracranial abnormality. Chest X-Ray 10/01/24 21:05 IMPRESSION: No acute findings. Laboratory Results WBC 7.64 10^3/uL (3.29-11.43) 10/01/24 21:10 RBC 5.11 10^6/uL (3.85-5.65) 10/01/24 21:10 Hgb 14.00 g/dL (11.27-16.99) 10/01/24 21:10 Hct 42.8 % (37-53) 10/01/24 21:10 MCV 83.8 fl (82-101) 10/01/24 21:10 MCH 27.4 pg (27-33) 10/01/24 21:10 MCHC 32.7 g/dL (30-55) 10/01/24 21:10 RDW 13.2 % (12.1-15.1) 10/01/24 21:10 Plt Count 227 10^3/cmm (157-399) 10/01/24 21:10 MPV 10.0 fL (7.4-10.4) 10/01/24 21:10 Neut % (Auto) 66.1 % 10/01/24 21:10 Lymph % (Auto) 22.5 % 10/01/24 21:10 [place] % (Auto) 9.9 % 10/01/24 21:10 Eos % (Auto) 0.7 % 10/01/24 21:10 Baso % (Auto) 0.4 % 10/01/24 21:10 Neut # (Auto) 5.05 10^3/uL (1.8-7.7) 10/01/24 21:10 Lymph # (Auto) 1.7 10^3/uL (0.8-4.8) 10/01/24 21:10 [place] # (Auto) 0.8 10^3/uL (0.2-0.9) 10/01/24 21:10 Eos # (Auto) 0.1 10^3/uL (0.0-0.8) 10/01/24 21:10 Baso # (Auto) 0.0 10^3/uL (0.0-0.1) 10/01/24 21:10 Nucleated RBC % (auto) 0 % 10/01/24 21:10 Nucleated RBCs # 0.0 /100WBC 10/01/24 21:10 Sodium 142 mmol/L (136-145) 10/01/24 21:10 Potassium 3.7 mmol/L (3.5-5.1) 10/01/24 21:10 Chloride 104 mmol/L (98-107) 10/01/24 21:10 Carbon Dioxide 26 mmol/L (22-29) 10/01/24 21:10 Anion Gap 15.7 (5-19) 10/01/24 21:10 BUN 9 mg/dL (6-20) 10/01/24 21:10 Creatinine 0.8 mg/dL (0.7-1.2) 10/01/24 21:10 GFR Calculation 112.0 mL/min (90-130) 10/01/24 21:10 Glucose 80 mg/dL (65-115) 10/01/24 21:10 Calculated Osmolality 292 mOsm/kg (285-295) 10/01/24 21:10 Calcium 9.3 mg/dL (8.5-10.5) 10/01/24 21:10 Total Bilirubin 0.3 mg/dL (0.15-1.2) 10/01/24 21:10 AST 22 U/L (0-40) 10/01/24 21:10 ALT 25 U/L (0-41) 10/01/24 21:10 Alkaline Phosphatase 42 U/L (40-130) 10/01/24 21:10 Total Protein 7.2 g/dL (6.6-8.7) 10/01/24 21:10 Albumin 4.5 g/dL (3.5-5.2) 10/01/24 21:10 Globulin 2.7 g/dL (1.3-4.6) 10/01/24 21:10 Urine Color Yellow (Yellow) 10/01/24 22:30 Urine Appearance Clear (CLEAR) 10/01/24 22:30 Urine pH 6.5 (5-7) 10/01/24 22:30 Ur Specific Fields 1.006 (1.005-1.030) 10/01/24 22:30 Urine Protein Negative (Negative) 10/01/24 22:30 Urine Glucose (UA) Negative (Normal) 10/01/24 22: Urine Ketones Negative (Negative) 10/01/24 22:30 Urine Blood Negative (Negative) 10/01/24 22:30 Urine Nitrate Negative (Negative) 10/01/24 22:30 Urine Bilirubin Negative (Negative) 10/01/24 22: Urine Urobilinogen 0.2 mg/dL (Negative) 10/01/24 22:30 Ur Leukocyte Esterase Negative (Negative) 10/01/24 22:30 Urine RBC 0-2 /hpf (0-2) 10/01/24 22:30 Urine WBC 0-5 /hpf (0-5) 10/01/24 22:30 Ur Squamous Epith Cells 0-5 /hpf (0-5) 10/01/24 22:30 Amorphous Sediment Not Reportable 10/01/24 22:30 Urine Bacteria None seen /hpf (NONE) 10/01/24 22:30 Hyaline Casts 0-4 /lpf H 10/01/24 22:30 All radiology interpretation(s) finalized by discharge Discharge Plan Discharge Patient Disposition: Home Clinical Impression: Syncope and collapse CHI (closed head injury) Qualifiers: Encounter type: initial encounter Qualified Code(s): S09.90XA - Unspecified injury of head, initial encounter Condition: Stable Prescriptions: No Action (DME) Ulnar whit See Rx Instructions .Route .MEDSUPPLY Qty: 1 0RF Rx Instructions: As directed multivitamin Tablet 1 tab PO DAILY amoxicillin 500 mg capsule 500 mg PO TID Qty: 30 0RF omeprazole 40 mg capsule,delayed release(DR/EC) 40 mg PO DAILY paroxetine HCl 10 mg tablet 10 mg PO DAILY cetirizine 10 mg tablet 10 mg PO DAILY@1900 ibuprofen 800 mg tablet 800 mg PO Q6H PRN (Reason: Pain) fluticasone propionate 50 mcg/actuation spray,suspension 50 mcg INTRANASAL DAILY@1900 cyclobenzaprine 10 mg tablet 10 mg PO BID PRN (Reason: muscle spasm) Qty: 20 0RF celecoxib 100 mg capsule 100 mg PO BID PRN (Reason: back pain) Qty: 30 0RF Discharge Orders: Discharge ED (Routine); Ordered 10/01/24 Ordered By: Arthur Curtis Referrals: Andry Burgos MD [Primary Care Provider] - Patient Instructions: Syncope (ED), Head Injury (ED) Activity Restrictions/Additional Instructions: Follow-up with neurology. Drink lots of fluids. Ibuprofen and Tylenol for headaches. Rest and recovery at home. Please follow-up with your regular doctor as needed and return with any new or worsening. Stand Alone Forms: Work/School Release Print Language: Setswana Coding Level of Care Code ED Pedigree Tracer for Linda Amador
[2024-10-01 21:14] LABS: Basophils % 0.4 %; Eosinophils # 0.1 10^3/uL (0.0-0.8); Eosinophils % 0.7 %; Hematocrit 42.8 % (37-53); Lymphocytes # 1.7 10^3/uL (0.8-4.8); Lymphocytes % 22.5 %; Mean Corpuscular HGB Conc 32.7 g/dL (30-55); Mean Corpuscular Hemoglobin 27.4 pg (27-33); Mean Corpuscular Volume 83.8 fl (82-101); Monocytes # 0.8 10^3/uL (0.2-0.9); Monocytes % 9.9 %; Neutrophils # 5.05 10^3/uL (1.8-7.7); Neutrophils % 66.1 %; Nucleated Red Blood Cells % 0 %; Platelet Count 227 10^3/cmm (157-399); Red Blood Count 5.11 10^6/uL (3.85-5.65); Red Cell Distribution Width 13.2 % (12.1-15.1); White Blood Count 7.64 10^3/uL (3.29-11.43)
[2024-10-01 21:31] LABS: Alanine Aminotransferase 25 U/L (0-41); Albumin Level 4.5 g/dL (3.5-5.2); Alkaline Phosphatase 42 U/L (40-130); Anion Gap 15.7 (5-19); Aspartate Amino Transferase 22 U/L (0-40); Blood Urea Nitrogen 9 mg/dL (6-20); Calcium 9.3 mg/dL (8.5-10.5); Carbon Dioxide 26 mmol/L (22-29); Chloride 104 mmol/L (98-107); Creatinine Clr Calc Pharmacy 165.3383; Globulin 2.7 g/dL (1.3-4.6); Glucose 80 mg/dL (65-115); Osmolality Calculated 292 mOsm/kg (285-295); Potassium 3.7 mmol/L (3.5-5.1); Sodium 142 mmol/L (136-145); Total Bilirubin 0.3 mg/dL (0.15-1.2); Total Protein 7.2 g/dL (6.6-8.7)
[2024-10-01] MEDS: sodium chloride 0.9% 1,000 ML 999 ML IV (22:00)
[2024-10-01 22:29] VITALS: BP 140/78; PULSE 93; O2SAT 99
[2024-10-01 22:38] LABS: Bilirubin Urine Negative (Negative); Blood Urine Negative (Negative); Glucose Urine UA Negative (Normal); Ketones Urine Negative (Negative); Leukocyte Esterase Urine Negative (Negative); Nitrate Urine Negative (Negative); Protein Urine Negative (Negative); Specific Gravity, Urine 1.006 (1.005-1.030); Urine Appearance Clear (CLEAR); Urine Color Yellow (Yellow); Urobilinogen Urine 0.2 mg/dL (Negative); pH Urine 6.5 (5-7)
[2024-10-01 22:43] LABS: Add Urine Microscopic? YES; Bacteria Urine None Seen /hpf; Hyaline Casts Urine 0-4 /lpf; RBC Urine 0-2 /hpf (0-2); Squamous Epithelial Cell Urine 0-5 /hpf (0-5); WBC Urine 0-5 /hpf (0-5)
[2024-10-01] MEDS: ketorolac 60 mg/2 mL INJ 30 MG IVP (22:55)
[2024-10-01 23:06] VITALS: BP 182/66; PULSE 75; O2SAT 97
--- NOTE | 2024-10-03 08:00 | DCPLANNER ---
Message sent to Neurology for referral/Follow up-Medical Decision Making Patient presented after syncope and collapse episode at work, history of similar. Has currently taking Paxil and hydroxyzine for this as it was reported to be psychogenic. Today he hit his head, neurologically is intact on exam and no outward signs of injury. CT of his head was negative for any intracranial abnormality. His lab work was normal, chest x-ray normal, and EKG did not show any acute abnormalities. Blood pressure and rest of his vitals have been stable, ultimately do not know what caused a syncopal episode, he did not have any concerning or alarming symptoms prior to this incident that would make me think that this is cardiac in nature, so I will refer him to neurology for further workup. Was given IV fluids here has had no further complaints and will be discharged in stable condition at this time.
== END 2024-10-01 23:07 | disposition home or self-care (01) ==
PROVIDERS: Emergency Medicine; Emergency Provider Physician Assistant; PCP Family Medicine
DX: R55 Syncope and collapse (principal); S09.8XXA Other specified injuries of head, initial encounter; X58.XXXA Exposure to other specified factors, initial encounter
CPT/HCPCS: 36415; 70450; 71045; 80053; 81001; 85025; 93005; 96374; 99285; J1885; J7030

== ENCOUNTER 2024-10-03 09:35 | Emergency (ER) | payer SELFPAY ==
[2024-10-03 09:45] VITALS: BP 134/84; PULSE 86; RESP 16; TEMP 36.7; O2SAT 98; BMI 33.0
--- NOTE | 2024-10-03 10:38 | CT_ITS ---
WS: [id number] CT HEAD TECHNIQUE: Noncontrast CT of the head obtained from the skullbase to the vertex. CLINICAL INFORMATION: fall, head injury COMPARISON: 10/01/2024 DLP: 1144.[address] scans at [facility] use at least one of these dose optimization techniques: automated exposure control; mA and/or kV adjustment per patient size (includes targeted exams where dose is matched to clinical indication); or iterative reconstruction. FINDINGS: No evidence of intracranial hemorrhage or mass effect. Ventricular system and basal cisterns are patent. No extra-axial fluid collections. No evidence of mass or mass effect. Normal newberry-white differentiation. Paranasal sinuses and mastoid air cells are well aerated. .Normal visualized soft tissues. CT/CT head wo con* [id number] IMPRESSION: 1. No evidence of intracranial hemorrhage or mass effect. 2. No acute intracranial findings.
--- NOTE | 2024-10-03 10:39 | ECG_ITS ---
[facility] Test Date: 2024-10-03 Pat Name: Fred López Department: Room: Gender: Male Project Development Coordinator: : 1990 Requested By: Jessy Correia Order Number: [id number] Nighat MD: Kallie Katz M.D. Measurements Intervals [place] Rate: 69 P: 54 [place]: 130 QRS: 82 QRSD: 106 T: 47 QT: 343 QTc: 369 Interpretive Statements SINUS RHYTHM INCOMPLETE RIGHT BUNDLE BRANCH BLOCK [90+ ms QRS DURATION, TERMINAL R IN V1/V2, 40+ ms S IN I/aVL/V4/V5/V6] ST ELEVATION, PROBABLY EARLY REPOLARIZATION [ST ELEVATION WITH NORMALLY INFLECTED T-WAVE] Compared to ECG 10/01/2024 20:26:25 Incomplete right bundle-branch block now present ST (T wave) deviation now present Early repolarization now present Electronically Signed On 10-03-2024 19:44:22 CDT by Kallie Katz M.D. [id number] [id number]
[2024-10-03 11:02] LABS: Basophils % 0.3 %; Eosinophils % 0.5 %; Lymphocytes # 1.4 10^3/uL (0.8-4.8); Lymphocytes % 18.4 %; Mean Corpuscular HGB Conc 32.8 g/dL (30-55); Mean Corpuscular Hemoglobin 27.9 pg (27-33); Mean Corpuscular Volume 85.1 fl (82-101); Mean Platelet Volume 10.1 fL (7.4-10.4); Monocytes # 0.5 10^3/uL (0.2-0.9); Monocytes % 6.2 %; Neutrophils # 5.59 10^3/uL (1.8-7.7); Neutrophils % 74.1 %; Nucleated Red Blood Cells % 0 %; Platelet Count 206 10^3/cmm (157-399); Red Blood Count 5.05 10^6/uL (3.85-5.65); Red Cell Distribution Width 13.4 % (12.1-15.1); White Blood Count 7.55 10^3/uL (3.29-11.43)
--- NOTE | 2024-10-03 11:03 | ED_ITS ---
HPI - Syncope 2 General: Chief Complaint: Syncope Stated Complaint: passed out, nausea Time Seen by Provider: 10/03/24 11:03 History of Present Illness: 33-year-old man who presents again to [facility] emergency room today with syncope. 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 He is supposed to follow-up with Dr. Perez at some point. At this point he has no focal motor deficits. No altered mental status. No chest pain. No abdominal pain. No nausea or vomiting. No obvious injuries. Related Data Home Medications ?Medication ?Instructions ?Recorded ?Confirmed omeprazole 40 mg capsule,delayed 40 mg PO DAILY 10/03/24 release paroxetine HCl 10 mg tablet 10 mg PO DAILY 10/05/23 hydroxyzine HCl 25 mg tablet 12.5 - 25 mg PO .Q4-6H TN N anxiety. 10/03/24 10/03/24 tizanidine 4 mg capsule 4 mg PO TID PRN Spasms 10/0310/03/24 Previous Rx's ?Medication ?Instructions ?Recorded Camilla whit #1 ea 08/10/21 Allergies Allergy/AdvReac Type Severity Reaction Status Date / Time doxycycline Allergy ALGY-Rash Verified 10/01/24 20:29 egg Allergy Unknown Verified 10/01/24 20:29 Review of Systems 2 Narrative: Constitutional symptoms: Negative except as documented in HPI. Skin symptoms: Negative except as documented in HPI. Eye symptoms: Negative except as documented in HPI. ENMT symptoms: Negative except as documented in HPI. Respiratory symptoms: Negative except as documented in HPI. Cardiovascular symptoms: Negative except as documented in HPI. Gastrointestinal symptoms: Negative except as documented in HPI. Genitourinary symptoms: Negative except as documented in HPI. Musculoskeletal symptoms: Negative except as documented in HPI. Neurologic symptoms: Negative except as documented in HPI. Psychiatric symptoms: Negative except as documented in HPI. Endocrine symptoms: Negative except as documented in HPI. PFSH ED 2 PFSH: Medical History Allergic rhinosinusitis No pertinent family history Fracture of fifth metacarpal bone of right hand Surgical History No pertinent past surgical history Family History Mother Hypertension Father Hypertension Denies family history of CAD (coronary artery disease) Congestive heart failure (CHF) Anemia Aneurysm Arrhythmia Atrial fibrillation TIA (transient ischemic attack) Heart disease Hyperlipidemia Hyperthyroidism Hypothyroidism Sudden cardiac Chronic kidney disease (CKD) Congenital heart disease Carotid artery disease Pulmonary embolism Cardiomyopathy Stroke Social History Smoking and tobacco/nicotine status: unknown if used tobacco/nicotine Physical Exam 2 Narrative: EXAM NARRATIVE: General: Alert, no acute distress. Skin: Warm, dry. Head: Normocephalic, atraumatic. Neck: Supple, trachea midline. Eye: Extraocular movements are intact. Ears, nose, mouth and throat: mucosa moist. Cardiovascular: Regular, Normal peripheral perfusion. Respiratory: Lungs are clear to auscultation, respirations are non-labored, breath sounds are equal, Symmetrical chest wall expansion. Gastrointestinal: Soft, Nontender, Non distended Musculoskeletal: Normal ROM, no deformity. Neurological: Alert and oriented, No focal neurological deficit observed. Psychiatric: Cooperative, appropriate mood & affect. Course 2 Vital Signs: Vital signs: Vital Signs Temperature 98.0 F 10/03/24 09:45 Pulse Rate 79 10/03/24 11:37 Respiratory Rate 16 10/03/24 09:45 Blood Pressure 151/92 10/03/24 11:37 Pulse Oximetry 96 10/03/24 11:37 Oxygen Delivery Me thod Room Air 10/03/24 11:37 MDM - Syncope Medical Decision Making Medical decision making: Differential diagnosis including but not limited to and based on the above HPI, review of systems and physical exam in this patient with syncope: Vasovagal, orthostatics hypotension, cardiac dysrhythmia, myocardial infarction, infection and hypotension, Orders placed to evaluate differential diagnosis based on the above differential, HPI and physical exam EKG: Time 1051. Rate 69. Early repolarization. Normal sinus rhythm, No ST-T changes, no ectopy, normal TN & QRS intervals, This was reviewed and interpreted by myself the ER physician at 1058 CT head: No acute intracranial process. no intracranial hemorrhage, no evidence of infarct. no evidence of acute fracture.This was reviewed and interpreted by myself the ER physician. Lab Review: Laboratory results were reviewed and interpreted by myself the emergency room physician. Lab work unremarkable. No leukocytosis. No anemia. No renal failure. D-dimer is negative. No PE. I reviewed the patient's medical record. Reexamination: Patient remained stable. No increased work of breathing. No altered mental status. No focal motor deficits. Assessment and plan: Psychogenic syncope - Discharged home - Discussed plan with patient. Answered any questions. - Evaluation and treatment of this problem were appropriate in the emergency setting. Lab Data 10/03/24 10:56 10/03/24 10:[address] 10/03/24 10:38 IMPRESSION: 1. No evidence of intracranial hemorrhage or mass effect. 2. No acute intracranial findings. Laboratory Results WBC 7.55 10^3/uL (3.29-11.43) 10/03/24 10:56 RBC 5.05 10^6/uL (3.85-5.65) 10/03/24 10:56 Hgb 14.10 g/dL (11.27-16.99) 10/03/24 10:56 Hct 43.0 % (37-53) 10/03/24 10:56 MCV 85.1 fl (82-101) 10/03/24 10:56 MCH 27.9 pg (27-33) 10/03/24 10:56 MCHC 32.8 g/dL (30-55) 10/03/24 10:56 RDW 13.4 % (12.1-15.1) 10/03/24 10:56 Plt Count 206 10^3/cmm (157-399) 10/03/24 10:56 MPV 10.1 fL (7.4-10.4) 10/03/24 10:56 Neut % (Auto) 74.1 % 10/03/24 10:56 Lymph % (Auto) 18.4 % 10/03/24 10:56 [place] % (Auto) 6.2 % 10/03/24 10:56 Eos % (Auto) 0.5 % 10/03/24 10:56 Baso % (Auto) 0.3 % 10/03/24 10:56 Neut # (Auto) 5.59 10^3/uL (1.8-7.7) 10/03/24 10:56 Lymph # (Auto) 1.4 10^3/uL (0.8-4.8) 10/03/24 10:56 [place] # (Auto) 0.5 10^3/uL (0.2-0.9) 10/03/24 10:56 Eos # (Auto) 0.0 10^3/uL (0.0-0.8) 10/03/24 10:56 Baso # (Auto) 0.0 10^3/uL (0.0-0.1) 10/03/24 10:56 Nucleated RBC % (auto) 0 % 10/03/24 10:56 Nucleated RBCs # 0.0 /100WBC 10/03/24 10:56 D-Dimer <= 0.27 ug/mLFEU (0-0.59) 10/03/24 10:56 Sodium 142 mmol/L (136-145) 10/03/24 10:56 Potassium 4.0 mmol/L (3.5-5.1) 10/03/24 10:56 Chloride 106 mmol/L (98-107) 10/03/24 10:56 Carbon Dioxide 26 mmol/L (22-29) 10/03/24 10:56 Anion Gap 14.0 (5-19) 10/03/24 10:56 BUN 6 mg/dL (6-20) 10/03/24 10:56 Creatinine 0.7 mg/dL (0.7-1.2) 10/03/24 10:56 GFR Calculation 130.7 mL/min (90-130) H 10/03/24 10:56 Glucose 99 mg/dL (65-115) 10/03/24 10:56 Calculated Osmolality 292 mOsm/kg (285-295) 10/03/24 10:56 Lactic Acid 0.8 mmol/L (0.5-2.2) 10/03/24 10:56 Calcium 9.3 mg/dL (8.5-10.5) 10/03/24 10:56 Total Bilirubin 0.3 mg/dL (0.15-1.2) 10/03/24 10:56 AST 20 U/L (0-40) 10/03/24 10:56 ALT 22 U/L (0-41) 10/03/24 10:56 Alkaline Phosphatase 39 U/L (40-130) L 10/03/24 10:56 Troponin T Baseline < 6 ng/L (0-15) 10/03/24 10:56 Total Protein 6.6 g/dL (6.6-8.7) 10/03/24 10:56 Albumin 4.4 g/dL (3.5-5.2) 10/03/24 10:56 Globulin 2.2 g/dL (1.3-4.6) 10/03/24 10:56 Influenza A (PCR) Negative (Negative) 10/03/24 10:54 Influenza Type B (PCR) Negative (Negative) 10/03/24 10:54 RSV (PCR) Negative (Negative) 10/03/24 10:54 SARS-CoV-2 (PCR) Negative (Negative) 10/03/24 10:54 All radiology interpretation(s) finalized by discharge Discharge Plan Discharge Patient Disposition: Home Clinical Impression: Recurrent syncope Condition: Stable Prescriptions: No Action (DME) Camilla sherman See Rx Instructions .Route .MEDSUPPLY Qty: 1 0RF Rx Instructions: As directed omeprazole 40 mg capsule,delayed release(DR/EC) 40 mg PO DAILY paroxetine HCl 10 mg tablet 10 mg PO DAILY hydroxyzine HCl 25 mg tablet 12.5 - 25 mg PO .Q4-6H PRN (Reason: anxiety.) tizanidine 4 mg capsule 4 mg PO TID PRN (Reason: Spasms) Discharge Orders: Discharge ED (Routine); Ordered 10/03/24 Ordered By: Jessy Perez Referrals: Jessie Perez MD [Physician] - 7-10 days (Please call for a follow-up appointment.) Andry Burgos MD [Primary Care Provider] - Discharge Diet: Usual diet Discharge Activity: Increase activity as tolerated Patient Instructions: Syncope (ED), Opioid Safety, Pain Management Activity Restrictions/Additional Instructions: Thank you for choosing [facility] for your healthcare needs today. You have been screened and evaluated and felt safe for discharge. Health conditions do change or evolve sometimes and as such it is important that you follow up with your Primary Doctor to be re checked, 3-5 days is a general good time frame for follow up. You are always welcome to return to the ED for re assessment if your symptoms are worsening or you have new concerns Print Language: Sami Coding Level of Care Code ED Ju[employer] Machines Setter for Linda Amador
[2024-10-03 11:22] LABS: D Dimer <= 0.27 ug/mLFEU (0-0.59)
[2024-10-03 11:27] LABS: Troponin(5th) Baseline < 6 ng/L (0-15)
[2024-10-03 11:29] LABS: Lactic Sepsis W/Reflex 0.8 mmol/L (0.5-2.2)
[2024-10-03 11:30] LABS: Alanine Aminotransferase 22 U/L (0-41); Albumin Level 4.4 g/dL (3.5-5.2); Alkaline Phosphatase 39 U/L (40-130); Aspartate Amino Transferase 20 U/L (0-40); Blood Urea Nitrogen 6 mg/dL (6-20); Calcium 9.3 mg/dL (8.5-10.5); Carbon Dioxide 26 mmol/L (22-29); Chloride 106 mmol/L (98-107); Globulin 2.2 g/dL (1.3-4.6); Glomerular Filtration Rate 130.7 mL/min (90-130); Glucose 99 mg/dL (65-115); Osmolality Calculated 292 mOsm/kg (285-295); Sodium 142 mmol/L (136-145); Total Bilirubin 0.3 mg/dL (0.15-1.2); Total Protein 6.6 g/dL (6.6-8.7)
[2024-10-03 11:37] VITALS: BP 151/92; PULSE 79; O2SAT 96
[2024-10-03 11:44] LABS: Influenza A NEGATIVE (Negative); Influenza B NEGATIVE (Negative); Respiratory Syncytial Virus Ce NEGATIVE (Negative); SARS-CoV-2 PCR NEGATIVE (Negative)
[2024-10-03 12:14] VITALS: BP 141/87; PULSE 82; O2SAT 97
== END 2024-10-03 12:14 | disposition home or self-care (01) ==
PROVIDERS: Emergency Provider Emergency Medicine; PCP Family Medicine
DX: R55 Syncope and collapse (principal); Z11.52 Encounter for screening for COVID-19
CPT/HCPCS: 36415; 70450; 80053; 83605; 84484; 85025; 85378; 87637; 93005; 99284

== ENCOUNTER 2024-10-08 12:23 | Emergency (ER) | payer SELFPAY ==
[2024-10-08 13:00] VITALS: BP 134/81; PULSE 91; RESP 16; TEMP 36.7; O2SAT 95; BMI 32.1
--- NOTE | 2024-10-08 14:08 | XRR_ITS ---
PROCEDURE INFORMATION: Exam: XR Right Shoulder Exam date and time: 10/08/2024 2:32 PM Age: 33 years old Clinical indication: Injury or trauma; Fall; Blunt trauma (contusions or hematomas); Shoulder; Right; Additional info: Fall, pain TECHNIQUE: Imaging protocol: Radiologic exam of the right shoulder. Views: 2 or more views. COMPARISON: CR (CHEST, ) 10/01/2024 9:08 PM FINDINGS: Bones/joints: Osseous structures are intact. No fracture or malalignment. Joint surfaces are preserved. Soft tissues: Normal. XR/XR shoulder RT min 2V* [id number] IMPRESSION: No acute bony abnormalities.
--- NOTE | 2024-10-08 14:08 | XRR_ITS ---
PROCEDURE INFORMATION: Exam: XR Right Elbow Exam date and time: 10/08/2024 2:34 PM Age: 33 years old Clinical indication: Injury or trauma; Fall; Blunt trauma (contusions or hematomas); Elbow; Right TECHNIQUE: Imaging protocol: Radiologic exam of the right elbow. Views: 3 or more views. COMPARISON: CR XR shoulder RT min 2V* [id number] 10/08/2024 2:32 PM FINDINGS: Bones/joints: Osseous structures are intact. No fracture or malalignment. Joint surfaces preserved. Soft tissues: There appears to be displaced anterior fat pad suggesting underlying joint effusion. XR/XR elbow RT min 3V* [id number] IMPRESSION: No acute bony abnormalities however there does appear to be a joint effusion raising concern for occult intra-articular fracture which would be better assessed on CT exam of the elbow.
--- NOTE | 2024-10-08 15:14 | W.ED.UPPEXIN ---
HPI - Extremity Injury (Upper) General: Chief Complaint: Syncope Stated Complaint: passed out, R shoulder and arm pain Time Seen by Provider: 10/08/24 14:37 Source: patient Mode of arrival: ambulatory Limitations: no limitations History of Present Illness: Patient is a 33-year-old male who presents to the ED today with a main complaint of right shoulder and elbow pain. He states he has been having syncopal episodes. These are reportedly getting worked up as an outpatient. Documentation reports that these are psychogenic episodes of syncope. He states he had a syncopal episode earlier today and when he came to he noticed he had pain to the right elbow and shoulder presumably from injury during the fall. He denies any other injuries or complaints at this time. States he did no strick head. No neck/back pain. MD complaint: injury to: right, shoulder and elbow Onset (ago): hour(s) Other Extremity Injury: Right: elbow and shoulder Other injuries: none Place: home Severity: moderate Relieving factors: immobilization Exacerbating factors: movement of extremity Associated symptoms: Reports no associated symptoms; Denies neck pain or weakness in extremities Related Data Home Medications ?Medication ?Instructions ?Recorded ?Confirmed omeprazole 40 mg capsule,delayed 40 mg PO DAILY 10/05/23 10/03/24 release paroxetine HCl 10 mg tablet 10 mg PO DAILY 10/05/23 10/03/24 hydroxyzine HCl 25 mg tablet 12.5 - 25 mg PO .Q4-6H PRN anxiety. 10/03/24 10/03/24 tizanidine 4 mg capsule 4 mg PO TID PRN Spasms 10/03/24 10/03/24 Previous Rx's ?Medication ?Instructions ?Recorded Camilla sherman #1 ea 08/10/21 Allergies Allergy/AdvReac Type Severity Reaction Status Date / Time doxycycline Allergy ALGY-Rash Verified 10/08/24 13:07 egg Allergy Unknown Verified 10/08/24 13:07 Review of Systems Musc: Reports: joint pain (R shoulder, R elbow) and limited range of motion (R elbow); Denies: neck pain, back pain or joint stiffness Neuro: Reports: other (syncope); Denies: headache(s), numbness in extremities, weakness in extremities or sensory changes PFS ED PFSH: Medical History Allergic rhinosinusitis No pertinent family history Fracture of fifth metacarpal bone of right hand Surgical History No pertinent past surgical history Family History Mother Hypertension Father Hypertension Denies family history of CAD (coronary artery disease) Congestive heart failure (CHF) Anemia Aneurysm Arrhythmia Atrial fibrillation TIA (transient ischemic attack) Heart disease Hyperlipidemia Hyperthyroidism Hypothyroidism Sudden cardiac Chronic kidney disease (CKD) Congenital heart disease Carotid artery disease Pulmonary embolism Cardiomyopathy Stroke Social History Smoking and tobacco/nicotine status: unknown if used tobacco/nicotine Physical Exam Const: COMMON NORMALS: no acute distress, average body habitus, patient oriented x3, no limitations, healthy appearing, alert and well nourished GENERAL APPEARANCE: cooperative ORIENTATION/CONSCIOUSNESS: Yes awake, Yes oriented to person, Yes oriented to place and Yes oriented to time HENMT: COMMON NORMALS: normocephalic and atraumatic HEAD & SCALP: normal to inspection, normocephalic and atraumatic FACE & SINUS: normal facial exam and face symmetric Neck/C-Spine: COMMON NORMALS: full ROM CERVICAL SPINE: No Cervical spine tenderness Resp: COMMON NORMALS: normal respiratory effort and clear to auscultation bilaterally AUSCULTATION: clear to auscultation bilaterally Cardio: COMMON NORMALS: regular rate and regular rhythm RATE: regular rate RHYTHM: regular rhythm Back/Pelvis: COMMON NORMALS: thoracic and lumbar spine normal to inspection and no thoracic nor lumbar tenderness Extremity: COMMON NORMALS: capillary refill normal GENERAL: Yes normal exam except as noted RIGHT UPPER EXTREMITY: Yes shoulder joint (mild tenderness throughout shoulder; no bony deformity) Right shoulder: Yes Right shoulder joint ROM exam (full passive ROM but with some mild discomforts) and Yes Right shoulder joint neurovascular exam (limited) and Yes elbow joint (pain over radial head; pain with full extension/flexion) Right elbow: Yes ROM (pain with full extension/flexion) and Yes neurovascular exam (normal) Neuro: COMMON NORMALS: patient oriented x3, moves all extremities, no focal motor deficits and no sensory deficits noted SENSORIUM/ORIENTATION: Yes alert, Yes oriented to person, Yes oriented to place and Yes oriented to time Course Vital Signs: Vital signs: Vital Signs Temperature 98.0 F 10/08/24 13:00 Pulse Rate 91 10/08/24 13:00 Respiratory Rate 16 10/08/24 13:00 Blood Pressure 134/81 10/08/24 13:00 Pulse Oximetry 95 10/08/24 13:00 Oxygen Delivery Me thod Room Air 10/08/24 13:00 MDM - Extremity Injury (Upper) Medical Decision Making XR R shoulder unremarkable. XR R elbow with no obvious bony injury but did have joint effusion present coupled with injury/dec ROM we will sling and have him follow-up with Ortho for concern for occult fracture. Medical Records I reviewed the patient's medical records. Lab Data Radiology Impressions Elbow X-Ray 10/08/24 14:08 IMPRESSION: No acute bony abnormalities however there does appear to be a joint effusion raising concern for occult intra-articular fracture which would be better assessed on CT exam of the elbow. Shoulder X-Ray 10/08/24 14:08 IMPRESSION: No acute bony abnormalities. All radiology interpretation(s) finalized by discharge Discharge Plan Discharge Patient Disposition: Home Clinical Impression: Occult closed fracture of right elbow Qualifiers: Encounter type: initial encounter Qualified Code(s): S42.401A - Unspecified fracture of lower end of right humerus, initial encounter for closed fracture Condition: Stable Prescriptions: No Action (DME) Camilla sherman See Rx Instructions .Route .MEDSUPPLY Qty: 1 0RF Rx Instructions: As directed omeprazole 40 mg capsule,delayed release(DR/EC) 40 mg PO DAILY paroxetine HCl 10 mg tablet 10 mg PO DAILY hydroxyzine HCl 25 mg tablet 12.5 - 25 mg PO .Q4-6H PRN (Reason: anxiety.) tizanidine 4 mg capsule 4 mg PO TID PRN (Reason: Spasms) Discharge Orders: Discharge ED (Routine); Ordered 10/08/24 Ordered By: Janice Sandoval Referrals: Andry Burgos MD [Primary Care Provider] - Activity Restrictions/Additional Instructions: As we discussed, your shoulder x-ray was unremarkable. Your elbow x-ray concerning for a possible occult fracture. We will place you in a sling and have you follow-up with orthopedics. You may ice the joint to help with discomfort. You may take pymu-gga-[id number] analgesics such as Tylenol and Ibuprofen. Case management should reach out to you this week to help set you up with your follow-up orthopedic appointment. Stand Alone Forms: Work/School Release Print Language: Portuguese Coding Level of Care Code ED Books Salesperson for Linda Amador
--- NOTE | 2024-10-08 16:33 | DCPLANNER ---
messaged ortho for er f/u
== END 2024-10-08 15:50 | disposition home or self-care (01) ==
PROVIDERS: Emergency Provider Physician Assistant; PCP Family Medicine
DX: S42.401A Unspecified fracture of lower end of right humerus, initial encounter for closed fracture (principal); W19.XXXA Unspecified fall, initial encounter; R55 Syncope and collapse
CPT/HCPCS: 73030; 73080; 99283

== ENCOUNTER 2024-10-10 13:15 | Outpatient (CLI) | payer SELFPAY ==
--- NOTE | 2024-10-10 13:21 | MR_ITS ---
WS: [id number] MRI HEAD WITH CONTRAST TECHNIQUE: Sagittal T1, T2 axial, T2 axial FLAIR, axial susceptibility weighted imaging, axial diffusion weighted images, and coronal T2 images were obtained. Pre and post-T1 axial and post T1 coronal images. ADC and FSPGR images. CLINICAL INFORMATION: SYNCOPE COLLAPSE COMPARISON: CT 10/03/2024 FINDINGS: No evidence of restricted diffusion to suggest acute ischemia. No suspicious intracranial signal abnormalities. No extra-axial fluid collections. No evidence of mass or mass effect. Normal posterior fossa. Normal vascular flow voids at the skull base. Paranasal sinuses and mastoid air cells are well aerated. Normal posterior nasopharynx. No abnormal gadolinium enhancement. Normal dural venous sinuses. No other acute findings. MR/MR head wo/w con [id number] IMPRESSION: 1. No evidence of restricted diffusion to suggest acute ischemia. 2. No suspicious intracranial signal abnormalities. 3. No hemosiderin on the susceptibly weighted images. 4. No abnormal gadolinium enhancement. 5. No other acute findings.
[2024-10-10] MEDS: gadobenate dimeglumine 20 mL vial IV (14:33)
== END 2024-10-10 13:16 | disposition home or self-care (01) ==
LOC: RAD 13:16
PROVIDERS: PCP Family Medicine; Visit Provider Family Medicine
DX: R55 Syncope and collapse (principal); S42.401A Unspecified fracture of lower end of right humerus, initial encounter for closed fracture; X58.XXXA Exposure to other specified factors, initial encounter
CPT/HCPCS: 70553; 73080

== ENCOUNTER → 2024-10-29 10:47 | Outpatient (BNVA) | payer SELFPAY | PROVIDERS: PCP Family Medicine; Visit Provider Physician Assistant | DX: S52.121A Displaced fracture of head of right radius, initial encounter for closed fracture (principal); S42.401A Unspecified fracture of lower end of right humerus, initial encounter for closed fracture; M77.11 Lateral epicondylitis, right elbow; W19.XXXA Unspecified fall, initial encounter | CPT/HCPCS: 73080 ==

== ENCOUNTER 2024-11-20 19:24 | Emergency (ER) | payer SELFPAY ==
[2024-11-20 19:31] VITALS: BP 117/81; PULSE 81; RESP 18; TEMP 36.6; O2SAT 98; BMI 34.2
--- NOTE | 2024-11-20 19:36 | CTR_ITS ---
PROCEDURE INFORMATION: Exam: CT Cervical Spine Without Contrast Exam date and time: 11/20/2024 8:13 PM Age: 34 years old Clinical indication: Injury or trauma; Fall; Blunt trauma TECHNIQUE: Imaging protocol: Computed tomography of the cervical spine without contrast. Radiation optimization: All CT scans at this facility use at least one of these dose optimization techniques: automated exposure control; mA and/or kV adjustment per patient size (includes targeted exams where dose is matched to clinical indication); or iterative reconstruction. COMPARISON: CT cervical spin wo con* [id number] 05/23/2022 11:08 PM RADIATION DOSE METRICS: Total DLP (mGy-cm): 252.9 FINDINGS: Bones: No acute fracture. Normal alignment. No significant disc bulge or herniation. No severe spinal canal stenosis. No significant neural foraminal narrowing. Lungs: Lung apices are normal. Soft tissues: Unremarkable. CT/CT cervical spin wo con* [id number] IMPRESSION: No acute cervical spine fracture.
--- NOTE | 2024-11-20 19:36 | CTR_ITS ---
PROCEDURE INFORMATION: Exam: CT Head Without Contrast Exam date and time: 11/20/2024 8:13 PM Age: 34 years old Clinical indication: Injury or trauma; Fall; Blunt trauma (contusions or hematomas); Consciousness not specified TECHNIQUE: Imaging protocol: Computed tomography of the head without contrast. Radiation optimization: All CT scans at this facility use at least one of these dose optimization techniques: automated exposure control; mA and/or kV adjustment per patient size (includes targeted exams where dose is matched to clinical indication); or iterative reconstruction. COMPARISON: MR head wo/w con [id number] 10/10/2024 2:06 PM RADIATION DOSE METRICS: Total DLP (mGy-cm): 1100.9 FINDINGS: Brain: No hemorrhage. No edema, mass effect or midline shift. Cerebral ventricles: No ventriculomegaly. Paranasal sinuses: Visualized sinuses are unremarkable. No fluid levels. Mastoid air cells: No mastoid effusion. Bones: Unremarkable. No acute fracture. Soft tissues: Unremarkable. CT/CT head wo con* [id number] IMPRESSION: No acute intracranial abnormality.
[2024-11-20 20:21] VITALS: BP 130/72; PULSE 88; RESP 18; O2SAT 99
--- NOTE | 2024-11-20 20:40 | ECG_ITS ---
[facility] Test Date: 2024-11-20 Pat Name: Fred López Department: Room: Gender: Male [employer]: : 1990 Requested By: Melquiades Aparicio Order Number: [id number] Nighat MD: Kallie Katz M.D. Measurements Intervals [place] Rate: 70 P: 56 [place]: 130 QRS: 96 QRSD: 105 T: 3 QT: 354 QTc: 384 Interpretive Statements SINUS RHYTHM BORDERLINE RIGHT AXIS DEVIATION [QRS AXIS > 90] Compared to ECG 10/03/2024 10:51:08 Incomplete right bundle-branch block no longer present ST (T wave) deviation no longer present Early repolarization no longer present Electronically Signed On 11-21-2024 21:47:04 CDT by Kallie Katz M.D. [email or web address] [id number]
[2024-11-20 21:00] VITALS: BP 126/68; PULSE 82; O2SAT 97
--- NOTE | 2024-11-20 21:28 | ED_ITS ---
HPI - Syncope General: Chief Complaint: Syncope Stated Complaint: passed out, neck pain Time Seen by Provider: 11/20/24 20:26 History of Present Illness: Chief complaint is passed out and neck injury. Patient states that prior to arrival he was bending over helping his 2-year-old daughter with a kitten. He states then he stood up abruptly started feeling lightheaded and then passed out. He states that he is being treated for possible seizures because he keeps having these episodes. He states when he fell back he landed on his dog on his neck and has some pain in the neck mainly on the right side. He states he does think he hit his head but does not think he hit it real hard. No headache. No back chest abdominal or extremity injury. No numbness or tingling in his arms or legs. Related Data Home Medications ?Medication ?Instructions ?Recorded ?Confirmed omeprazole 40 mg capsule,delayed 40 mg PO DAILY 10/29/24 release paroxetine HCl 10 mg tablet 10 mg PO DAILY 10/05/23 hydroxyzine HCl 25 mg tablet 12.5 - 25 mg PO .Q4-6H NC N anxiety. 10/03/24 10/29/24 tizanidine 4 mg capsule 4 mg PO TID PRN Spasms 10/0310/29/24 Previous Rx's ?Medication ?Instructions ?Recorded Ulnar gutter #1 ea 08/10/21 hinged elbow brace #1 ea 10/10/24 levetiracetam 500 mg tablet 500 mg PO BID #60 tabs ([facility]) Allergies Allergy/AdvReac Type Severity Reaction Status Date / Time doxycycline Allergy ALGY-Rash Verified 10/29/24 11:03 egg Allergy Unknown Verified 10/29/24 11:03 [facility] ED PFSH: Medical History Allergic rhinosinusitis No pertinent family history Fracture of fifth metacarpal bone of right hand Surgical History No pertinent past surgical history Family History Mother Hypertension Father Hypertension Denies family history of CAD (coronary artery disease) Congestive heart failure (CHF) Anemia Aneurysm Arrhythmia Atrial fibrillation TIA (transient ischemic attack) Heart disease Hyperlipidemia Hyperthyroidism Hypothyroidism Sudden cardiac Chronic kidney disease (CKD) Congenital heart disease Carotid artery disease Pulmonary embolism Cardiomyopathy Stroke Social History Smoking and tobacco/nicotine status: never used tobacco/nicotine Physical Exam Narrative: EXAM NARRATIVE: Patient is alert talkative interactive moving his neck freely. He has some mild tenderness in the paraspinal muscles on the right side of the neck. No visible swelling or bruising. No midline vertebral tenderness. No tenderness over his back. No bruising or external signs of trauma over the scalp or extremities or trunk. Heart is regular rhythm and lung sounds are clear and abdomen soft nontender. His skin is warm dry and pink. Extremities appear warm well- perfused. He has intact cerebellar function, no drift in his arms or legs no leg edema or calf tenderness. He moves his arms and legs freely. He is sitting up using his phone alert and talkative. Speech is clear. He shows ability to reason. He is oriented x 4 Course Vital Signs: Vital signs: Vital Signs Temperature 97.9 F 11/20/24 19:31 Pulse Rate 82 11/20/24 21:00 Respiratory Rate 18 11/20/24 20:21 Blood Pressure 126/68 11/20/24 21:00 Pulse Oximetry 97 11/20/24 21:00 Oxygen Delivery Me thod Room Air 11/20/24 21:00 MDM - Syncope Medical Decision Making Patient well-appearing after what sounds like a syncopal event. He states he is also being evaluated and treated for possible seizures. He states he has been having these intermittent episodes for a long time now and has been seeing multiple doctors including cardiology and neurology. He states he did not come in for a workup of the passing out episode because he has those checked out many times before and they cannot find the cause of it. He states the only reason he came in is because hitting his neck and to get checked out. Will get a CT of his head and neck with the mechanism and the history to evaluate for cervical spine fracture or traumatic head injury. These were both negative per rad iology. I did order EKG which shows a sinus rhythm to my interpretation with a rate of [address] segment changes and prominent T waves. Appears very similar to old EKG on comparison. I reviewed he has had 2 Holter monitors 1 this year and 1 last year. I reviewed prior labs that he is had. Patient declines having further testing today and states this was no different than prior episodes. He states he feels fine other than his neck was sore and that is why he came in to get checked out. I discussed doing IV fluid and labs and reasoning and he states that he feels completely fine other than his neck being sore and declines. I advised activity restrictions outpatient follow-up and return instructions. I obtained history from his mother who was present as well. Lab Data Radiology Impressions Cervical Spine CT 11/20/24 19:36 IMPRESSION: No acute cervical spine fracture. Head CT 11/20/24 19:36 IMPRESSION: No acute intracranial abnormality. All radiology interpretation(s) finalized by discharge Discharge Plan Discharge Patient Disposition: Home Clinical Impression: Syncope, Acute cervical myofascial strain Condition: Stable Prescriptions: No Action (DME) Ulnar whit See Rx Instructions .Route .MEDSUPPLY Qty: 1 0RF Rx Instructions: As directed levetiracetam [Keppra] 500 mg tablet 500 mg PO BID Qty: 60 0RF omeprazole 40 mg capsule,delayed release(DR/EC) 40 mg PO DAILY paroxetine HCl 10 mg tablet 10 mg PO DAILY (DME) hinged elbow brace See Rx Instructions .Route .MEDSUPPLY Qty: 1 0RF Rx Instructions: As directed hydroxyzine HCl 25 mg tablet 12.5 - 25 mg PO .Q4-6H PRN (Reason: anxiety.) tizanidine 4 mg capsule 4 mg PO TID PRN (Reason: Spasms) Discharge Orders: Discharge ED (Routine); Ordered 11/20/24 Ordered By: Melquiades Aparicio Referrals: Andry Burgos MD [Primary Care Provider, Family Practice] Activity Restrictions/Additional Instructions: No driving or heights or swimming or exertion until cleared by your doctor. Avoid bending over then rapidly standing up. Come back if changing pattern of passing out, chest pain, palpitations, shortness of breath, concerning headache or numbness or tingling in her arms or legs or loss of bowel or bladder control, any worse or concerns. Follow-up on your test results with your doctor. Call your doctor for follow-up. Print Language: Yemeni Coding Level of Care Code ED Physical Therapy Attendant for Linda Amador
[2024-11-20 21:31] VITALS: BP 126/68; PULSE 74; O2SAT 98
== END 2024-11-20 21:32 | disposition home or self-care (01) ==
PROVIDERS: Emergency Provider Emergency Medicine; PCP Family Medicine
DX: R55 Syncope and collapse (principal); S16.1XXA Strain of muscle, fascia and tendon at neck level, initial encounter; W19.XXXA Unspecified fall, initial encounter
CPT/HCPCS: 70450; 72125; 93005; 99284

== ENCOUNTER 2024-12-29 21:11 | Emergency (ER) | payer SELFPAY ==
[2024-12-29 21:15] VITALS: BP 140/81; PULSE 105; RESP 16; TEMP 36.9; O2SAT 98; BMI 33.5
--- OUTSIDE RECORDS SUMMARY | 2024-12-29 21:16 | XMS_ITS | Patient Health Record ---
Author Organization [facility] Address [address] [place] [id number] Care Team Providers Care Band Singer Name Role Phone Josh Cardenas Primary Care Provider [phone] Allergies Allergen (clinical drug ingredient) Drug/Non Drug Allergy documented on EMR Reaction Allergy Type Onset Date Status eggs (uncoded) rash Allergy Activ e sulfamethoxazole / trimethoprim Bactrim DS Unknown Drug Allergy Active penicillin V Penicillin V Potassium rash Drug Allergy Active Reason For Referral No Information Medications Medication SIG (Take, Route, Frequency, Duration) Notes Start Date End Date Status Azelastine HCl 137 MCG/SPRAY 1 puff in each nostril Nasally Twice a day 02/15/2020 Active Fluticasone Propionate 50 MCG/ACT 1 spray in each nostril Nasally Once a day Active Ibuprofen 800 MG 1 tablet with food or milk Orally Three times a day as needed PRN Active Vitamin E 400 UNIT 1 tablet Orally Once a day for 30 day(s) PRN Active Atomoxetine HCl 80 MG 1 capsule in the morning Orally Once a day for 30 days 11/01/2019 Not-Taking Sulfamethoxazole-Trimeth oprim 800-160 MG 1 tablet Orally Twice a day for 7 days 12/13/2019 Not-Taking Mupirocin 2 % 1 application Externally Three times a day for 5 day(s) 12/13/2019 Not-Taking Clindamycin HCl 300 MG 1 capsule Orally twice a day (bid) for 10 day(s) Completed 03/03/2020 Not-Taking predniSONE 10 MG (21) as directed Orally for 6 days 08/06/2020 Active Keflex 500 MG 1 capsule Orally Twice a day for 10 day(s) Not-Taking Cetirizine HCl 10 MG 1 tablet Orally Onc e a day 03/30/2019 Active traMADol HCl 50 MG 1 tablet Orally twice a day as needed for pain for 7 days 08/06/2020 Active Cyclobenzaprine HCl 10 MG 1 tablet Orally Once a day prn for muscle spasm PRN Active Immunizations Vaccine Route Administration Date Status Comme nts Flu Vac Quad 0.5 PRIVATE IM Intramuscular 07/27/2019 Admin istered Social History Tobacco Use: Social History Observation Description Date Details (start date - stop date) Never Smoker NA - NA Sex Assigned At : Social History Observation Description Sex Assigned At Male - Question Answer Notes Did you have a drink containing alcohol in the p ast year? No Points 0 Interpretation Negative PEGGY Drug Questionnaire Question Answer Notes Have you used drugs other th an those for medical reasons in the past 12 months? No Do you smoke for age 13 and up Question Answer Notes Are you a: never smoker Smokeless Tobacco Question Answer Notes Tobacco use other than smoking No Have you ever had an STD Question Answer Notes Have you ever had an STD No Prevention Strategies Discussed Other Diabetic Retinal Eye Exam Question Answer Notes Date of exam 10/02/2019 Problems Problem Type SNOMED Code ICD Code Onset Dates Problem Status W/U Status Risk Notes Problem Attention deficit hyperactivity disorder (476336234) ADHD (attention deficit hyperactivity disorder) (F90.9) Active confirmed Problem Attention deficit disorder (10415266) Attention deficit (R41.840) Active confirmed Problem Seasonal allergy (902845465) Seasonal allergies (J30.2) Active confirmed Problem Memory impairment (782654812) Memory impairment (R41.3) Active confirmed Plan Of Treatment No Information Insurance Providers Payer Name Payer Address Payer Phone Subscriber Number Group Number Insured Name Patient Relationship to Insured Coverage Start Date Coverage End Date [facility] [address] HALEY Cummings [id number] [phone] [id number] Fred López Self - patient is the insured Medications Administered Medication Instructions Date of Administration Dosage Notes Decadron LA 8mg 03/03/2020 8 mg Decadron SA 4mg/ml (dexamethasone) 03/03/2020 4 mg Decadron SA 4mg/ml (dexamethasone) 08/04/2020 4 mg Depo Medrol 40mg 08/04/2020 40 mg Toradol 08/04/2020 60 mg Medical (General) History Surgical History Surgery Date(Month/Year)
--- OUTSIDE RECORDS SUMMARY | 2024-12-29 21:16 | XMS_ITS | Clinical Summary ---
Author Organization [facility] [address] Address [address] [place] [address] Care Team Providers Care Belt Lacer Name Role Phone Unavailable Primary Care Provider Unavailabl e Immunizations Immunization Administration Dates Next Due (GARDASIL)(9-45 YRS) HUMAN PAPILLOMAVIRUS VACCINE, TYPES 6, 11, 16, 18, QUADRIVALENT (4VHPV), 3 DOSE, IM 11/25/2009,09/18/2009 (M-M-R II/PRIORIX)(12 MO UP) MEASLES, MUMPS AND RUBELLA VIRUS VACCINE, 0.5 ML IM/SUBCUT 08/13/1996,06/26/1996,02/13/1993 (TDVAX)(7 YRS UP) TETANUS AN D DIPHTHERIA TOXOIDS, ADSORBED (2 LF OF TETANUS TOXOID AND 2 LF OF DIPHTHERIA TOXOID), 0.5ML (PF), IM 01/05/2003,01/08/2000 Dt Dtp Dtap Vaccine 06/26/1996, 3,05/15/1992,03/14,01/18/1992 HIB, Unspecified Formulation 02/13/1993, 05/15/1992,03/14/1992,01/17 Hepatitis A Vaccine 08/28/1998,04/03/1998,1997 Hepatitis B Vaccine 05/01/1996,12/23/1995,1995 IPV/OPV 06/26/1996, 3,03/14/1992,01/17 Meningococcal A Conjugate Vaccine IM 09/18/2009 Social History Tobacco Use Types Packs/Day Years Used Date Smoking Tobacco: Never Assessed Sex and Gender Information Value Date Recorded Sex Assigned at Not on file 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
--- OUTSIDE RECORDS SUMMARY | 2024-12-29 21:16 | XMS_ITS | Clinical Summary ---
Author Organization [facility] Address [address] [facility] Attn: Epic Prelude ADT [place] [address] Care Team Providers Care Stage Manager Name Role Phone Andry Burgos MD Primary Care Provider + Allergies Active Allergy Reactions Criticality Noted Date Comments Doxycycline Rash,Nausea and Vomiting Low 07/27/2023 Egg Rash Low 07/27/2023 Medications loratadine (CLARITIN) 10 mg tablet Take 10 mg by mouth daily. Active ibuprofen (MOTRIN) 800 mg tablet Take 800 mg by mouth every 6 hours as needed for Pain, Mild. Active aspirin (ECOTRIN EC) 81 mg Tablet, Delayed Release (E.C.) Take 81 mg by mouth daily. Active fluticasone propionate (FLONASE) 50 mcg/spray [place], Suspension nasal inhaler Administer 2 Sprays in each nostril daily. Active PAROXETINE HCL ORAL Take by mouth. 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 Gender Identity Not on file Sexual Orientation Not on file Last Filed Vital Signs Vital Sign Reading Time Taken Comments Blood Pressure 154/77 06/14/2024 1:17 PM SHOP SUPERINTENDENT Pulse 93 08/13/2023 2:30 PM SHOP SUPERINTENDENT Temperature 37.2 C (98.9 F) 06/14/2024 12:20 PM SHOP SUPERINTENDENT Respiratory Rate 16 06/14/2024 1:17 PM SHOP SUPERINTENDENT Oxygen Saturation 98% 06/14/2024 1:17 PM SHOP SUPERINTENDENT Inhaled Oxygen Concentration - - Weight 106.5 kg (234 lb 12.8 oz) 2024 12:20 PM SHOP SUPERINTENDENT Height 180.3 cm (5' 11 ) 06/14/2024 12: 20 PM SHOP SUPERINTENDENT Body Mass Index 32.75 06/14/2024 12:20 PM SHOP SUPERINTENDENT Plan of Treatment Health Maintenance Due Date Last Done Comments DTAP/TDAP/TD VACCINES (6 - Tdap) 01/06/2003 01/05/2003, 01/08/2000, 06/26/1996, Additional history exists HPV VACCINES (3 - Male 3-dos e series) 03/20/2010 11/25/2009, 09/18/2009 INFLUENZA VACCINE (#1) 2025 HEPATITIS B VACCINES Completed 05/01/1996, 12/23/1995, 10/27/1995 Care Teams Stage Manager Relationship Specialty Start Date End Date Andry Burgos MD [address] [place] [phone] PCP - General Family Practice 07/27/23
--- NOTE | 2024-12-29 22:34 | ECG_ITS ---
[email or web address]: 2024-[facility]29 Pat Name: Fred López Department: Room: Gender: Male Frit Maker: : 1990 Requested By: David Calvo Order Number: [id number] Disla MD: Kallie Katz M.D. Measurements Intervals [place] Rate: 82 P: 63 CO: 132 QRS: 103 QRSD: 105 T: 30 QT: 320 QTc: 376 Interpretive Statements SINUS RHYTHM RIGHT AXIS DEVIATION [QRS AXIS > 100] INCOMPLETE RIGHT BUNDLE BRANCH BLOCK [90+ ms QRS DURATION, TERMINAL R IN V1/V2, 40+ ms S IN I/aVL/V4/V5/V6] Compared to ECG 11/20/2024 20:40:41 Incomplete right bundle-branch block now present Electronically Signed On 12-30-2024 18:35:40 CDT by Kallie Katz M.D. [email or web address] [id number]
[2024-12-29 22:39] LABS: Hematocrit 44.5 % (37-53); Hemoglobin 14.90 g/dL (11.27-16.99); Mean Corpuscular HGB Conc 33.5 g/dL (30-55); Mean Corpuscular Hemoglobin 27.9 pg (27-33); Mean Corpuscular Volume 83.3 fl (82-101); Nucleated Red Blood Cells % 0 %; Platelet Count 169 10^3/cmm (157-399); Red Blood Count 5.34 10^6/uL (3.85-5.65); White Blood Count 7.54 10^3/uL (3.29-11.43)
[2024-12-29] MEDS: acetaminophen 1,000 MG/100 ML PIGGYBACK 400 MG IV (22:41)
[2024-12-29] MEDS: ondansetron 2 mg/ML SDV 2 mL 4 MG IVP (22:41)
[2024-12-29 22:56] LABS: Alanine Aminotransferase 43 U/L (0-41); Albumin Level 4.6 g/dL (3.5-5.2); Alkaline Phosphatase 49 U/L (40-130); Anion Gap 12.6 (5-19); Aspartate Amino Transferase 31 U/L (0-40); Blood Urea Nitrogen 14 mg/dL (6-20); Calcium 9.7 mg/dL (8.5-10.5); Carbon Dioxide 29 mmol/L (22-29); Chloride 104 mmol/L (98-107); Creatinine Clr Calc Pharmacy 131.8549; Globulin 3.1 g/dL (1.3-4.6); Glucose 86 mg/dL (65-115); Osmolality Calculated 294 mOsm/kg (285-295); Potassium 3.6 mmol/L (3.5-5.1); Sodium 142 mmol/L (136-145); Total Protein 7.7 g/dL (6.6-8.7)
[2024-12-29 23:35] VITALS: BP 134/86; PULSE 87; RESP 16; O2SAT 97
--- NOTE | 2024-12-30 03:33 | W.ED.NAVMDI ---
HPI - Nausea/Vomiting/Diarrhea General: Chief complaint: Nausea/Vomiting/Diarrhea Stated complaint: heat exhaustion Time Seen by Provider: 12/29/24 22:31 History of Present Illness: Middle-aged male with a history of prior heat exhaustion episodes (third annual occurrence) spent 1.5?2 h weeding on a hillside today without adequate hydration. After coming indoors he took a nap, awoke feeling 'freezing cold,' and subsequently vomited approximately ten times. Associated symptoms include lightheadedness, headache, generalized abdominal discomfort, and a sore throat that began this morning (patient attributes to allergies). Denies cough or subjective fever prior to presentation. No chronic medical conditions and no routine medications. Reports feeling better with prior fluid replacement and antiemetic therapy. No other concerns voiced. Related Data Home Medications ?Medication ?Instructions ?Recorded ?Confirmed omeprazole 40 mg capsule,delayed 40 mg PO DAILY 10/05/23 10/29/24 release paroxetine HCl 10 mg tablet 10 mg PO DAILY 10/05/23 10/29/24 hydroxyzine HCl 25 mg tablet 12.5 - 25 mg PO .Q4-6H PRN anxiety. 10/03/24 10/29/24 tizanidine 4 mg capsule 4 mg PO TID PRN Spasms 10/03/24 10/29/24 Previous Rx's ?Medication ?Instructions ?Recorded Ulnar gutter #1 ea 08/10/21 hinged elbow brace #1 ea 10/10/24 levetiracetam 500 mg tablet 500 mg PO BID #60 tabs 10/26/24 (Keppra) ondansetron 4 mg disintegrating 4 mg PO Q8H PRN nausea and 12/30/24 tablet vomiting #20 tabs Allergies Allergy/AdvReac Type Severity Reaction Status Date / Time doxycycline Allergy ALGY-Rash Verified 10/29/24 11:03 egg Allergy Unknown Verified 10/29/24 11:03 [facility] ED PFSH: Medical History (Updated 12/30/24 @ 01:23 by David Herring MD) Allergic rhinosinusitis No pertinent family history Fracture of fifth metacarpal bone of right hand Surgical History No pertinent past surgical history Family History Mother Hypertension Father Hypertension Denies family history of CAD (coronary artery disease) Congestive heart failure (CHF) Anemia Aneurysm Arrhythmia Atrial fibrillation TIA (transient ischemic attack) Heart disease Hyperlipidemia Hyperthyroidism Hypothyroidism Sudden cardiac Chronic kidney disease (CKD) Congenital heart disease Carotid artery disease Pulmonary embolism Cardiomyopathy Stroke Social History Smoking and tobacco/nicotine status: never used tobacco/nicotine Physical Exam Const: COMMON NORMALS: no acute distress, patient oriented x3 and alert HENMT: COMMON NORMALS: normocephalic and atraumatic HEAD & SCALP: normocephalic and atraumatic Eye: COMMON NORMALS: Equal, round and reactive pupils present, EOMs intact bilaterally and no scleral icterus PUPIL: Yes Equal, round and reactive pupils present Resp: COMMON NORMALS: normal respiratory effort and No retractions Cardio: COMMON NORMALS: regular rate, regular rhythm and No murmurs present (Cardio) RATE: regular rate RHYTHM: regular rhythm GI: COMMON NORMALS: Normal to inspection, nondistended, normoactive bowel sounds present, Soft to palpation and non-tender PALPATION: Yes Soft to palpation Neuro: COMMON NORMALS: patient oriented x3 SENSORIUM/ORIENTATION: Yes alert Skin: COMMON NORMALS: no rashes or lesions noted GENERAL SKIN EXAM: no rashes or lesions noted Course Vital Signs: Vital signs: Vital Signs Temperature 98.4 F 12/29/24 21:15 Pulse Rate 87 12/29/24 23:35 Respiratory Rate 16 12/29/24 23:35 Blood Pressure 134/86 12/29/24 23:35 Pulse Oximetry 97 12/29/24 23:35 Oxygen Delivery Me thod Room Air 12/29/24 23:35 MDM - Nausea/Vomiting/Diarrhea Medical Decision Making The patient presents with multiple episodes of emesis, lightheadedness, headache, and sore throat after prolonged outdoor activity in heat with inadequate hydration; prior similar heat-related illnesses reported. Vital signs show mild tachycardia but otherwise stable; no pertinent physical examination findings documented. Primary consideration is dehydration/heat exhaustion. Viral pharyngitis considered given sore throat but lower priority as management would be symptomatic only and oxygenation is normal. Plans: IV crystalloid bolus underway, ondansetron given for nausea, analgesic in IV for headache. Labs drawn for CBC and BMP to assess dehydration; ECG ordered to screen for arrhythmia. Further viral testing deferred unless clinical course worsens. Symptoms markedly improved with IV fluids and Ofirmev and Zofran. He will be discharged home in stable condition with instructions to use Tylenol, ibuprofen, and a short course of Zofran prescribed Lab Data 12/29/24 22:23 12/29/24 22: Laboratory Results WBC 7.54 10^3/uL (3.29-11.43) 12/29/24 22: RBC 5.34 10^6/uL (3.85-5.65) 12/29/24 22:23 Hgb 14.90 g/dL (11.27-16.99) 12/29/24 22: Hct 44.5 % (37-53) 12/29/24 22: MCV 83.3 fl (82-101) 12/29/24 22: MCH 27.9 pg (27-33) 12/29/24 22: MCHC 33.5 g/dL (30-55) 12/29/24 22: RDW 12.4 % (12.1-15.1) 12/29/24 22: Plt Count 169 10^3/cmm (157-399) 12/29/24 22: MPV 10.3 fL (7.4-10.4) 12/29/24 22: Neut % (Auto) 74.1 % 12/29/24 22:23 Lymph % (Auto) 14.3 % 12/29/24 22:23 [place] % (Auto) 9.4 % 12/29/24 22:23 Eos % (Auto) 1.5 % 12/29/24: Baso % (Auto) 0.3 % 12/29/24 22: Neut # (Auto) 5.59 10^3/uL (1.8-7.7) 12/29/24 22: Lymph # (Auto) 1.1 10^3/uL (0.8-4.8) 12/29/24 22: [place] # (Auto) 0.7 10^3/uL (0.2-0.9) 12/29/24 22:23 Eos # (Auto) 0.1 10^3/uL (0.0-0.8) 12/29/24 22: Baso # (Auto) 0.0 10^3/uL (0.0-0.1) 12/29/24 22:23 Nucleated RBC % (auto) 0 % 12/29/24 22:23 Nucleated RBCs # 0.0 /100WBC 12/29/24 22:23 Sodium 142 mmol/L (136-145) 12/29/24 22:23 Potassium 3.6 mmol/L (3.5-5.1) 12/29/24 22:23 Chloride 104 mmol/L (98-107) 12/29/24 22:23 Carbon Dioxide 29 mmol/L (22-29) 12/29/24 22:23 Anion Gap 12.6 (5-19) 12/29/24 22:23 BUN 14 mg/dL (6-20) 12/29/24 22:23 Creatinine 1.0 mg/dL (0.7-1.2) 12/29/24 22:23 GFR Calculation 86.1 mL/min (90-130) L 12/29/24 22:23 Glucose 86 mg/dL (65-115) 12/29/24 22:23 Calculated Osmolality 294 mOsm/kg (285-295) 12/29/24 22:23 Calcium 9.7 mg/dL (8.5-10.5) 12/29/24 22:23 Total Bilirubin 0.2 mg/dL (0.15-1.2) 12/29/24 22:23 AST 31 U/L (0-40) 12/29/24 22:23 ALT 43 U/L (0-41) H 12/29/24 22:23 Alkaline Phosphatase 49 U/L (40-130) 12/29/24 22:23 Total Protein 7.7 g/dL (6.6-8.7) 12/29/24 22:23 Albumin 4.6 g/dL (3.5-5.2) 12/29/24 22:23 Globulin 3.1 g/dL (1.3-4.6) 12/29/24 22:23 No radiology studies performed this visit EKG Data EKG 1: Interpretation: Time?2301?sinus rhythm, rate of 82, no ST segment elevation or depression, no T wave inversions, intervals within normal limits. QTc = 359 Discharge Plan Discharge Patient Disposition: Home Clinical Impression: Nausea & vomiting, Headache, Dehydration Condition: Stable Prescriptions: New ondansetron 4 mg tablet,disintegrating 4 mg PO Q8H PRN (Reason: nausea and vomiting) Qty: 20 0RF No Action (DME) Ulnar gutter See Rx Instructions .Route .MEDSUPPLY Qty: 1 0RF Rx Instructions: As directed levetiracetam [Keppra] 500 mg tablet 500 mg PO BID Qty: 60 0RF omeprazole 40 mg capsule,delayed release(DR/EC) 40 mg PO DAILY paroxetine HCl 10 mg tablet 10 mg PO DAILY (DME) hinged elbow brace See Rx Instructions .Route .MEDSUPPLY Qty: 1 0RF Rx Instructions: As directed hydroxyzine HCl 25 mg tablet 12.5 - 25 mg PO .Q4-6H PRN (Reason: anxiety.) tizanidine 4 mg capsule 4 mg PO TID PRN (Reason: Spasms) Discharge Orders: Discharge ED (Routine); Ordered 12/30/24 Ordered By: David Herring Referrals: Andry Burgos MD [Primary Care Provider, Family Practice] Discharge Diet: Advance as tolerated Discharge Activity: Increase activity as tolerated Patient Instructions: Acute Nausea and Vomiting (ED), Patient Portal & [facility] Instructions Print Language: Serbian Coding Level of Care Code ED Chief [facility] Division for Linda Amador
== END 2024-12-30 01:30 | disposition home or self-care (01) ==
PROVIDERS: Emergency Provider Student in an Organized Health Care Education/Training Program; PCP Family Medicine
DX: E86.0 Dehydration (principal); R11.2 Nausea with vomiting, unspecified; R51.9 Headache, unspecified
CPT/HCPCS: 80053; 85025; 93005; 96361; 96365; 96375; 99284; J0131; J2405; J7030